=== PATIENT | female | born 1950 | race Two or more races ===

== ENCOUNTER → 2017-01-31 | Outpatient (CLI) | payer MEDICARE, MEDICAID ==
[~2017-01-31] MED LIST: AMLODIPINE BESY10 MG ORAL; ATORVASTATIN CA40 MG ORAL; COGENTIN1 MG ORAL; DEPAKOTE250 MG PO; DEPAKOTE500 MG PO; FERROUS SULFAT325 MG ORAL; FUROSEMIDE20 M1 ORAL; GABAPENTIN100 MG ORAL; KLONOPIN0.5 MG ORAL; LEVOTHYROXINE50 MCG ORAL; LEXAPRO20 MG ORAL; OMEPRAZOLE20 M2 ORAL; PRANDIN1 MG ORAL; RISPERDAL0.5 MG ORAL
== END | disposition home or self-care (01) ==
LOC: RAD 09:07
DX: E11.9 Type 2 diabetes mellitus without complications (principal)
CPT/HCPCS: 36415; 83036

== ENCOUNTER → 2017-02-14 | Outpatient (CLI) | payer MEDICARE, MEDICAID ==
[2017-02-14 09:48] LABS: BASOPHILS % (AUTO) 0.4 % (0.0-2.0); EOSINOPHILS % (AUTO) 2.6 % (0.0-3.0); LYMPHOCYTES % (AUTO) 27.3 % (20.0-45.0); MEAN CORPUSCULAR HEMOGLOBIN 30.8 PG (27.0-31.0); MEAN CORPUSCULAR HGB CONC 32.3 G/DL (32.0-36.0); MEAN CORPUSCULAR VOLUME 95 FL (80-99); MEAN PLATELET VOLUME 7.5 FL (6.5-10.1); MONOCYTES % (AUTO) 11.1 % (1.0-10.0); NEUTROPHILS % (AUTO) 58.6 % (45.0-75.0); PLATELET COUNT 171 K/UL (150-450); RED CELL DISTRIBUTION WIDTH 12.2 % (11.6-14.8); WHITE BLOOD COUNT 7.8 K/UL (4.8-10.8)
[2017-02-14 10:14] LABS: HEMOLYSIS 9; IRON 105 ug/dL (37-145); TOTAL IRON BINDING CAPACITY 249 ug/dL (250-400)
[2017-02-14 11:08] LABS: RETICULOCYTE COUNT 1.4 % (0.0-2.0)
[2017-02-14 14:18] LABS: FERRITIN 540 ng/mL (13-150)
== END | disposition home or self-care (01) ==
LOC: LAB 09:18
DX: K62.5 Hemorrhage of anus and rectum (principal)
CPT/HCPCS: 36415; 82728; 83540; 83550; 85025; 85044

== ENCOUNTER → 2017-03-14 | Outpatient (CLI) | payer MEDICARE, MEDICAID ==
[2017-03-14 09:30] LABS: BASOPHILS % (AUTO) 0.5 % (0.0-2.0); EOSINOPHILS % (AUTO) 2.4 % (0.0-3.0); MEAN CORPUSCULAR HGB CONC 31.2 G/DL (32.0-36.0); MEAN CORPUSCULAR VOLUME 99 FL (80-99); MEAN PLATELET VOLUME 8.6 FL (6.5-10.1); MONOCYTES % (AUTO) 11.9 % (1.0-10.0); NEUTROPHILS % (AUTO) 52.2 % (45.0-75.0); PLATELET COUNT 188 K/UL (150-450); RED BLOOD COUNT 3.73 M/UL (4.20-5.40); RED CELL DISTRIBUTION WIDTH 13.2 % (11.6-14.8); WHITE BLOOD COUNT 9.4 K/UL (4.8-10.8)
== END | disposition home or self-care (01) ==
LOC: LAB 09:06
DX: F31.9 Bipolar disorder, unspecified (principal); I10 Essential (primary) hypertension
CPT/HCPCS: 36415; 80164; 85025

== ENCOUNTER 2017-04-13 13:30 | Outpatient (RCR) | payer MEDICARE, MEDICAID ==
--- NOTE | 2017-03-29 13:55 | IOP Daily Group Progress Note ---
IOP Daily Group Progress Note Treatment Plan/Target Problem: Problem: depression Program: reflections Group Reflections - Tuesday: group 3 (11:30am-12:15pm) Therapy Focus/Approach of Group: symptoms Goal(s) of Group: coping tools for symptoms, symptom management Observations: anxious, depressed mood, participated, responded to prompts Staff Intervention: facilitated discussion, provided support Response/Progress Noted: A Cognitive Behavioral Therapy (CBT) exercise was presented helping the pt identify particularly challenging symptoms and obtain support and input regarding symptom management. ANGELITO CABRERA SERVICE TEAM LEADER March 29, 2017 13:55
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
--- NOTE | 2017-04-11 16:00 | IOP Daily Group Progress Note ---
IOP Daily Group Progress Note Treatment Plan/Target Problem: Date: April 11, 2017 Problem: depression Group Reflections - Tuesday: group 3 (11:30am-12:15pm) Therapy Focus/Approach of Group: symptoms Goal(s) of Group: coping tools for symptoms, counteracting negative thinking, identifying strengths, stress reduction, verbalize current thoughts and mood, weekend review Observations: active listening skills, attentive, engaged, made insightful comments, participated, positive mood, self disclosing Staff Intervention: assessed for safety/suicidality, assessed pt's current mood , facilitated discussion Staff Intervention: Therapist asked patients to consider current mood and feelings, and to discuss their weekend. Therapist offered patients a safe, comfortable space to express themselves and assessed for HI, SI, and safety. Response/Progress Noted: Patient mentioned feeling some anxiety because she had yet to hear about her ride home. She described how much better she is able to handle stress than in the past. Patient discussed things she enjoys, including art and dancing. Jonh Hernandez April 11, 2017 16:00
[~2017-04-13 13:30] MED LIST changes: +COLACE100 MG ORAL; +COMBIVENT RESPIM4 GM IH; +VITAMIN D400 INTLU ORAL
--- NOTE | 2017-04-14 16:53 | IOP Daily Group Progress Note ---
IOP Daily Group Progress Note Group Reflections - : group 2 (10:35am-11:20am) Therapy Focus/Approach of Group: skills Goal(s) of Group: coping tools for symptoms, explore relationships to family, identifying strengths, interpersonal relationships, positive thoughts to improve mood, verbalize current thoughts and mood Observations: attentive, engaged, open, participated, positive mood, self disclosing Staff Intervention: assessed for safety/suicidality, facilitated discussion, normalized feelings Staff Intervention: Therapist facilitated a discussion about noticing beauty in the world, through the example of the butterfly.Patients were asked to share their observations and experiences. Session closed with a song titled "Black Butterfly." Response/Progress Noted: Patient said "I used to be afraid of animals." She described getting beyond that feeling to the point she was able to feed a family of cats. She also spoke about the meaningful relationships in her life. Jonh Hernandez April 14, 2017 16:53
--- NOTE | 2017-04-20 14:58 | IOP Daily Group Progress Note ---
IOP Daily Group Progress Note Treatment Plan/Target Problem: Date: April 20, 2017 Problem: depression Program: reflections Group Reflections - Tuesday: group 2 (10:35am-11:20am) Therapy Focus/Approach of Group: skills Goal(s) of Group: anxiety reduction, identifying strengths, improving self esteem, interpersonal relationships Observations: active listening skills, attentive, engaged, open, participated, self disclosing Staff Intervention: assessed for safety/suicidality, assessed pt's current mood , prompted reminiscence, provided administrative support coordinator Intervention: Therapist facilitated a discussion about friendship and encouraged patients to share their friendship history and, if possible, how particular relationships affected them. Therapist also used music at the close of class, as a way to assist patients with relaxation. Response/Progress Noted: Patient shared that she has had a couple of girlfriends "since the 1980s", but they haven't gotten together in a while. Patient discussed acclimating to being without a working cellphone, but admitted that she does not have her friends' numbers easily accessible, which is "frustrating." Jonh Hernandez COMMERCIAL LOAN SPECIALIST April 20, 2017 14:58
--- NOTE | 2017-04-27 15:26 | IOP Daily Group Progress Note ---
IOP Daily Group Progress Note Treatment Plan/Target Problem: Date: April 27, 2017 Problem: depression Program: reflections Group - Tuesday: group 2 (10:35am-11:20am) Therapy Focus/Approach of Group: skills Goal(s) of Group: anxiety reduction, communication skills, coping with change, identifying strengths, verbalize current thoughts and mood Observations: attentive, engaged, participated, self disclosing, responded to prompts Staff Intervention: assessed for safety/suicidality, assessed pt's current mood , facilitated discussion, prompted reminiscence, provided intelligence support officer Intervention: Therapist facilitated a discussion among patients, encouraging them to share situations where expectations were met and weren't met and what motivated their reactions, as well as when they managed the expectations of others. Response/Progress Noted: Patient disclosed her motivation to lose weight and go to [place] with a friend. She described prior trip with another friend where expectations were not met because "my friend ran out of money and I had to lend her what I won at the slots." She said she learned to be more careful about who she travels with. Jonh Hernandez STUDENT SERVICES REP April 27, 2017 15:26
== END 2017-04-27 | disposition home or self-care (01) ==
LOC: PTY 13:30
DX: M54.5 Low back pain (principal); R26.9 Unspecified abnormalities of gait and mobility; R53.1 Weakness; T14.8 Other injury of unspecified body region; X58.XXXD Exposure to other specified factors, subsequent encounter
CPT/HCPCS: 97110; 97161; G0283; G8978; G8979

== ENCOUNTER 2017-05-04 13:30 | Outpatient (RCR) | payer MEDICARE, MEDICAID ==
--- NOTE | 2017-05-04 16:43 | IOP Daily Group Progress Note ---
IOP Daily Group Progress Note Treatment Plan/Target Problem: Date: May 04, 2017 Group Reflections - Tuesday: group 1 (9:40am-10:25am) Therapy Focus/Approach of Group: process Goal(s) of Group: anxiety reduction, coping tools for symptoms, identify mood, impact of current issues on mood, positive thoughts to improve mood, stress reduction Observations: engaged, open, participated, self disclosing, responded to prompts Staff Intervention: assessed for safety/suicidality, assessed pt's current mood , facilitated discussion, provided support, validated feelings Staff Intervention: Therapist facilitated session by asking patients to share their mood and any thoughts or problems they are experiencing, as well as what would improve their mood. Therapist provided a safe space for patients to express themselves and assessed for SI, HI, and safety. Response/Progress Noted: Patient disclosed feeling "disappointed, frustrated, and anxious." She described "waiting and waiting" for conservator to help her either fix or replace her cellphone, after waiting nearly a month. Patient reported "I was sure I was going to get a phone, but it didn't happen." Jonh Hernandez CONTRACTOR GENERAL BUILDING May 04, 2017 16:43
--- NOTE | 2017-05-05 08:59 | IOP Daily Group Progress Note ---
IOP Daily Group Progress Note Treatment Plan/Target Problem: Date: May 04, 2017 Problem: depression Program: reflections Group Reflections - Tuesday: group 2 (10:35am-11:20am) Therapy Focus/Approach of Group: skills Goal(s) of Group: anxiety reduction, coping with change, identify mood, positive thoughts to improve mood, support systems Observations: attentive, engaged, focused, participated, positive mood Staff Intervention: assessed for safety/suicidality, assessed pt's current mood , facilitated discussion, provided support, validated feelings Staff Intervention: Therapist facilitated a discussion about how patients deal with change, both positive and negative. Patients were asked to share what they do when change happens and group members were encouraged to support each other. Response/Progress Noted: Patient described many changes she has experienced over the past several years since the 2008 deaths of her mother and brother. "I had to adjust with difficulty. I lived by myself for a year. I know I'm resilient. I'm now secure at my cousin's." oJnh Hernandez HOTEL SECURITY OFFICER May 05, 2017 08:59
--- NOTE | 2017-05-05 15:25 | IOP Daily Group Progress Note ---
IOP Daily Group Progress Note Treatment Plan/Target Problem: Date: May 05, 2017 Group Reflections - : group 3 (11:30am-12:15pm) Therapy Focus/Approach of Group: symptoms Goal(s) of Group: coping tools for symptoms, identifying strengths, symptom management Observations: attentive, engaged, participated, responded to prompts Staff Intervention: assessed for safety/suicidality, assessed pt's current mood , facilitated discussion, provided support, validated feelings Staff Intervention: Therapist facilitated a discussion with patients about positive coping skills. After providing examples, patients were encouraged to share their experiences and the coping tools they employ when they are feeling strong emotions. Response/Progress Noted: Patient disclosed various coping tools she uses. "I listen to the radio. I call friends when I have a phone. I also exercise at a park with my friend." Patient shared a focus on uatsdin as well. "Going to advent helps me cope through the week." She shared with the group her favorite Bible verse. Jonh Hernandez May 05, 2017 15:25
--- NOTE | 2017-05-09 14:02 | IOP Daily Group Progress Note ---
IOP Daily Group Progress Note Treatment Plan/Target Problem: Date: May 09, 2017 Problem: impaired thoughts Program: reflections Group Reflections - Tuesday: group 2 (10:35am-11:20am) Therapy Focus/Approach of Group: skills Response/Progress Noted: THIS DRAFT IS A DUPLICATE. NOTE ALREADY WRITTEN AND SIGNED. BONG MONTESINOS May 09, 2017 14:02
--- NOTE | 2017-05-09 15:31 | IOP Daily Group Progress Note ---
IOP Daily Group Progress Note Treatment Plan/Target Problem: Date: May 09, 2017 Problem: depression Program: reflections Group Reflections - Tuesday: group 3 (11:30am-12:15pm) Therapy Focus/Approach of Group: symptoms Goal(s) of Group: anxiety reduction, identify mood, identifying strengths, reminiscing to improve mood Observations: attentive, engaged, participating actively, positive mood, smiled when appropriate Staff Intervention: assessed for safety/suicidality, assessed pt's current mood , facilitated discussion, prompted reminiscence, provided support, validated feelings Staff Intervention: Therapists shared the following quote by Ortiz Moctezuma, "Opportunities to find deeper marino within ourselves come when life seems most challenging," and asked clients to share when in their lives they overcame challenges and what they learned about themselves in the process. Response/Progress Noted: Patient expressed feelings of happiness and optimism now that she has a new phone, and is reconnecting with friends she was unable to reach. Patient shared challenge of cooking a meal by herself. "I usually don't cook," but "Bryson told me I could do it and I did." Patient described a quote she remembers from her mother, "make a necklace of positive experiences" and shared that she tries to locate the positive when she feels down. Jonh Hernandez OAK TANNER May 09, 2017 15:31
--- NOTE | 2017-05-10 16:04 | IOP Daily Group Progress Note ---
IOP Daily Group Progress Note Treatment Plan/Target Problem: Date: May 10, 2017 Problem: depression Program: reflections Group Reflections - Tuesday: group 3 (11:30am-12:15pm) Therapy Focus/Approach of Group: symptoms Goal(s) of Group: coping tools for symptoms, identify activities to improve mood, positive thoughts to improve mood Observations: attentive, engaged, open, participated, positive mood, responded to prompts, smiled when appropriate Staff Intervention: assessed pt's current mood, assisted identifying coping tools, encouraged patient participation, reflective listening Staff Intervention: Therapist facilitated a discussion with patients about using music as a resource toward healing, asking them to identify their favorite song and share what it means to them. Patients also shared their thoughts and feelings about their favorite foods. Response/Progress Noted: Patient discussed the song that means the most to her, "Black Butterfly," because it reminds her of "the struggle against slavery as well as current struggles" in society. As a diabetic, patient shared that she has to watch the foods she eats, but disclosed her love of "spumoni ice cream and homemade fudge. " Jonh Hernandez MASTIC SPRAYER May 10, 2017 16:04
--- NOTE | 2017-05-11 15:48 | IOP Daily Group Progress Note ---
IOP Daily Group Progress Note Treatment Plan/Target Problem: Date: May 09, 2017 Problem: impaired thoughts Program: reflections Group Reflections - Tuesday: group 2 (10:35am-11:20am) Therapy Focus/Approach of Group: skills Goal(s) of Group: anger management, anxiety reduction, coping tools for symptoms Observations: concrete thinking, constricted affect, depressed mood, participated, self disclosing, responded to prompts Staff Intervention: facilitated discussion, provided reassurance, validated feelings Response/Progress Noted: LISTEN TO YOUR EMOTIONS Pt participated in a Cognitive Behavioral Therapy group discussion regarding the value of ones emotions and how important they are to help us get in touch with our needs, values, and boundaries. Nine different emotions were written on index cards and put in a basket that was passed from one Pt to the next, each Pt selecting and reading one of the cards about a particular emotion. Pt was able to identify strongly with many, if not all of the emotions discussed. They were, anger, sadness, shame, anxiety, disappointment, bitterness, discomfort, resentment, and guilt. BONG MONTESINOS MARKETING LEAD May 11, 2017 15:48
--- NOTE | 2017-05-11 16:45 | IOP Treatment Plan Update ---
Monthy/Quarterly Plan Update Today's Date: May 11, 2017 Last Review Date: April 11, 2017 Next Review Date: Jun 13, 2017 Justification for OP Care: difficulty with ADL's/IADL's, extreme psychosocial stressors Problem List: impaired thoughts Progress Since Last Review: Pt has been consistently attending the program 4x/wk as planned and is pleased with the progress she is making and the support she receives from being in this program. Pt was pleased to say she recently got a new cell phone, after being without one for about three weeks. Her cousin and conservator, Delia, helped Pt shop for it. Pablo , Bryson, also helped Pt with transportation. Since Pt spent money on a new cell phone, she stated she will have to be more careful with her money on other things she needs this month. As a result, Pt was not able to save $25.00 this month for a possible vacation. Pt had to delay paying off and picking up a $15.00 layaway balance for a pair of earrings. She will have to wait until early May. Pt stated that she called her friend Guillermina for a quick phone conversation. Guillermina has recently received treatment for health problems, and Pt and her friend Josefa may visit Guillermina for a short time after spiritism on Tuesday. Pt expressed her gratitude at having a nice place to live with her family. Short Term Goals: 1. Pt feels good about her financial situation and has changed her mind. She decided she wants to give her family with whom she lives $60.00 p/mo for groceries, after all. Pt will self-report in 1:1 2. Pt has been and will continue exercising in the park on the weight machines with her friend Josefa. Pt will self-report in 1:1 3. Pt will continue with her goal of losing weight. She recently reached a plateau, but will continue eating a little less and exercising more. Pt will self-report in 1:1 Family Involvement/Education: Pt receives support from her first cousin Delia and Pablo , Bryson. Nurse: There are medical issues, but they do not preclude the patients participation in the program. Please see the nurse note in the EMR for specifics. BONG MONTESINOS May 11, 2017 16:45
--- NOTE | 2017-05-12 13:57 | IOP Daily Group Progress Note ---
IOP Daily Group Progress Note Treatment Plan/Target Problem: Date: May 12, 2017 Problem: depression Program: reflections Group Reflections - : group 2 (10:35am-11:20am) Therapy Focus/Approach of Group: skills Goal(s) of Group: anxiety reduction, identify triggers to symptoms, stress reduction, verbalize current thoughts and mood Observations: attentive, engaged, low energy, participated, self disclosing Staff Intervention: assessed pt's current mood, encouraged patient participation, facilitated discussion, provided support, validated feelings Staff Intervention: Therapist facilitated a Cognitive Behavioral Therapy discussion generated by the question "What are your trigger events for feeling angry?." Therapist encouraged patients to share what they do when angry and encouraged group members to support each other. Therapist shared a mindfulness technique and used music therapy to assist patients in relaxation. Response/Progress Noted: Patient described feeling angry "when I think people are trying to control me, treat me like I'm helpless." She shared she tends to "hold it in," but experiences frustration and thoughts o living on her own. Jonh Hernandez COPPER ROLLER HANDLER PRINTING May 12, 2017 13:57
--- NOTE | 2017-05-16 14:00 | IOP Daily Group Progress Note ---
IOP Daily Group Progress Note Treatment Plan/Target Problem: Date: May 16, 2017 Problem: impaired thoughts Program: reflections Group Reflections - Tuesday: group 2 (10:35am-11:20am) Therapy Focus/Approach of Group: skills Goal(s) of Group: decreasing isolation, identify activities to improve mood, improving self esteem Observations: concrete thinking, constricted affect, hyperverbal, participated , self disclosing, responded to prompts Staff Intervention: facilitated discussion, reflective listening, validated progress Response/Progress Noted: VOLUNTEERING Pt participated in a Cognitive Behavioral therapy group discussion about volunteering. If Pt could volunteer anywhere, with no limitations, what would Pt be doing as a volunteer, where would it be, and who would Pt be serving? Pt stated, I would have a non-profit program to help women and children and we would feed them lunch. BONG MONTESINOS May 16, 2017 14:00
== END 2017-05-27 | disposition home or self-care (01) ==
LOC: PTY 13:30
DX: M54.5 Low back pain (principal); R26.9 Unspecified abnormalities of gait and mobility; R53.1 Weakness

== ENCOUNTER → 2017-05-23 | Outpatient (CLI) | payer MEDICAID, MEDICARE ==
[2017-05-23 09:47] LABS: BASOPHILS % (AUTO) 1.2 % (0.0-2.0); EOSINOPHILS % (AUTO) 2.2 % (0.0-3.0); LYMPHOCYTES % (AUTO) 30.3 % (20.0-45.0); MEAN CORPUSCULAR HEMOGLOBIN 31.6 PG (27.0-31.0); MEAN CORPUSCULAR VOLUME 99 FL (80-99); MONOCYTES % (AUTO) 10.4 % (1.0-10.0); NEUTROPHILS % (AUTO) 55.9 % (45.0-75.0); PLATELET COUNT 205 K/UL (150-450); RED BLOOD COUNT 4.15 M/UL (4.20-5.40); RED CELL DISTRIBUTION WIDTH 11.6 % (11.6-14.8); WHITE BLOOD COUNT 9.1 K/UL (4.8-10.8)
[2017-05-23 10:15] LABS: HEMOGLOBIN A1C 6.5 % (< 6.0)
[2017-05-23 10:16] LABS: CREATININE 1.9 mg/dL (0.5-0.9); GLOMERULAR FILTRATION RATE 26.6 mL/min (>60); MAGNESIUM 1.9 mg/dL (1.7-2.5); TOTAL PROTEIN 7.9 g/dL (6.6-8.7)
[2017-05-23 10:22] LABS: THYROID STIMULATING HORMONE 2.52 uIU/mL (0.300-4.500)
== END | disposition home or self-care (01) ==
LOC: LAB 09:15
DX: E11.9 Type 2 diabetes mellitus without complications (principal)
CPT/HCPCS: 36415; 80053; 80164; 83036; 83735; 84443; 85025

== ENCOUNTER 2017-06-01 13:45 | Outpatient (RCR) | payer MEDICARE, MEDICAID ==
--- NOTE | 2017-05-29 23:16 | Reflections ---
03/03/2017 REVIEW OF SYSTEMS: The patient is pleasant, calm, and cooperative with interview. Follows directions. Denies any new complaints. MENTAL STATUS EVALUATION: Alert to self and situation. Mood is anxious. Affect is appropriate. Thought process is linear. Cognition is intact. Impulse control, insight, and judgment is partially impaired. DIAGNOSIS: Schizoaffective disorder. PLAN: Continue with current management. Continue to monitor symptoms and behavior. Medications reviewed. Chart reviewed. Case discussed with staff. No new symptoms, sedation, or side effects. Familia Galan M.D. DR: Terrance JOB#: [id number] CC: OLGA
== END 2017-06-27 | disposition home or self-care (01) ==
LOC: PTY 13:45
DX: M54.5 Low back pain (principal); R26.9 Unspecified abnormalities of gait and mobility; R53.1 Weakness
CPT/HCPCS: 97110; G8979; G8980

== ENCOUNTER 2017-07-21 09:13 | Outpatient (CLI) | payer MEDICARE, MEDICAID ==
[2017-07-21 09:59] LABS: BASOPHILS % (AUTO) 0.9 % (0.0-2.0); EOSINOPHILS % (AUTO) 2.6 % (0.0-3.0); LYMPHOCYTES % (AUTO) 24.4 % (20.0-45.0); MEAN CORPUSCULAR HEMOGLOBIN 32.2 PG (27.0-31.0); MEAN CORPUSCULAR HGB CONC 32.5 G/DL (32.0-36.0); MEAN CORPUSCULAR VOLUME 99 FL (80-99); MEAN PLATELET VOLUME 9.6 FL (6.5-10.1); MONOCYTES % (AUTO) 11.1 % (1.0-10.0); NEUTROPHILS % (AUTO) 60.9 % (45.0-75.0); PLATELET COUNT 199 K/UL (150-450); RED BLOOD COUNT 3.84 M/UL (4.20-5.40); RED CELL DISTRIBUTION WIDTH 11.8 % (11.6-14.8); WHITE BLOOD COUNT 9.5 K/UL (4.8-10.8)
[2017-07-21 10:09] LABS: BILIRUBIN,DIRECT 0.1 mg/dL (0.1-0.3); TOTAL PROTEIN 7.7 g/dL (6.6-8.7)
== END 2017-07-21 11:13 | disposition home or self-care (01) ==
LOC: LAB 09:13
DX: E11.9 Type 2 diabetes mellitus without complications (principal)
CPT/HCPCS: 36415; 80076; 80164; 82140; 85025

== ENCOUNTER 2018-01-12 19:11 | Inpatient (IN) | payer MEDICARE, MEDICAID ==
[~2018-01-12] VITALS: Ht 172.7 cm; Wt 95.3 kg
[2018-01-12 19:40] VITALS: BP 121/76
[2018-01-12] MEDS ORDERED: Acetaminophen 500mg (ES) tab ORAL ONE (20:00)
--- NOTE | 2018-01-12 20:26 | Emergency Room Report ---
History of Present Illness General Chief Complaint: General Complaint Source: Patient Present Illness HPI 67-year-old female, presenting with 3-4 days of cough, fever, chills. Also states that she fell yesterday and hit her head. There was no LOC. Sustained abrasions to left forehead. Also complaining of watery nonbloody diarrhea, about 3-4 episodes. No abdominal pain.dec appetite Allergies: Coded Allergies: No Known Allergies (Unverified , 07/08/13) Patient History Past Medical History: see triage record Past Surgical History: none Pertinent Family History: none Last Menstrual Period: NA Now: No Reviewed Nursing Documentation: PMH: Agreed, PSxH: Agreed Nursing Documentation-PMH Hx Hypertension: Yes Hx Diabetes: Yes Review of Systems All Other Systems: negative except mentioned in HPI Physical Exam Vital Signs Date Time Temp Pulse Resp B/P (MAP) Pulse Ox O2 Delivery O2 Flow Rate FiO2 01/12/18 19:27 100.3 101 18 121/76 98 Room Air 100.2 Sp02 EP Interpretation: reviewed, normal General Appearance: alert, GCS 15, non-toxic, mild distress Head: normocephalic - abrasion L forehead, very silght non boggy hematoma Eyes: bilateral eye normal inspection, bilateral eye PERRL, bilateral eye EOMI ENT: normal pharynx, normal voice, dry mucus membranes Neck: normal inspection, full range of motion, supple Respiratory: normal inspection, lungs clear, normal breath sounds, no respiratory distress, no retraction, no wheezing, speaking full sentences, chest symmetrical Cardiovascular #1: normal inspection, regular rate, rhythm, normal capillary refill Cardiovascular #2: 2+ radial (R), 2+ radial (L) Gastrointestinal: normal inspection, non tender, soft, non-distended, no guarding Musculoskeletal: normal inspection, back normal, normal range of motion, non- tender Neurologic: normal inspection, alert, oriented x3, responsive, accounting systems manager III-XII nml as tested, motor strength/tone normal, sensory intact, normal gait, speech normal Psychiatric: normal inspection, judgement/insight normal, memory normal Skin: normal inspection, normal color, no rash, warm/dry, well hydrated, normal turgor Medical Decision Making Diagnostic Impression: Primary Impression: Dehydration Additional Impressions: Fever Elevated troponin ER Course 67-year-old female, presenting with cough and fever, diarrhea DDX: Viral URI vs. pneumonia Dehydration, gastroenteritis, at this time her abdomen is very soft nontender all quadrants Plan: Labs, chest x-ray, IV fluids ER course: pt given fluids and tylenol very mild elevation trop - asa given Disposition: Patient is to be admitted to [facility] D/w hospitalist Dr Azar Lopez EKG Diagnostic Results EP Interpretation: Yes Rate: normal Rhythm: NSR ST Segments: slight TWI [id number] ASA given to patient: No Rhythm Strip EP Interpretation: Yes Rate: 70 Rhythm: NSR, no PVCs, no ectopy Chest X-ray CXR: Ordered: Yes 1 view Indication: SOB EP interpretation: Yes Interpretation: Right-sided hemidiaphragm elevation Impression: No acute findings Electronically signed by Kamla Vieira MD Laboratory Tests Test 01/12/18 21:05 01/12/18 23:00 01/13/18 10:47 01/13/18 14:23 White Blood Count 10.0 K/UL (4.8-10.8) Red Blood Count 4.17 M/UL (4.20-5.40) L Hemoglobin 12.8 G/DL (12.0-16.0) Hematocrit 39.8 % (37.0-47.0) Mean Corpuscular Volume 95 FL (80-99) Mean Corpuscular Hemoglobin 30.8 PG (27.0-31.0) Mean Corpuscular Hemoglobin Concent 32.3 G/DL (32.0-36.0) Red Cell Distribution Width 12.2 % (11.6-14.8) Platelet Count 176 K/UL (150-450) Mean Platelet Volume 10.1 FL (6.5-10.1) Neutrophils (%) (Auto) 75.3 % (45.0-75.0) H Lymphocytes (%) (Auto) 10.5 % (20.0-45.0) L Monocytes (%) (Auto) 12.3 % (1.0-10.0) H Eosinophils (%) (Auto) 0.0 % (0.0-3.0) Basophils (%) (Auto) 1.9 % (0.0-2.0) Sodium Level 139 MMOL/L (136-145) Potassium Level 3.9 MMOL/L (3.5-5.1) Chloride Level 103 MMOL/L (98-107) Carbon Dioxide Level 25 MMOL/L (21-32) Anion Gap 11 mmol/L (5-15) Blood Urea Nitrogen 29 mg/dL (7-18) H Creatinine 2.6 MG/DL (0.55-1.30) H Estimate Glomerular Filtration Rate 22.4 mL/min (>60) Glucose Level 140 MG/DL (74-106) H Lactic Acid Level 1.30 mmol/L (0.66-2.22) Calcium Level 9.5 MG/DL (8.5-10.1) Total Bilirubin 0.2 MG/DL (0.2-1.0) Aspartate Amino Transferase (AST) 46 U/L (15-37) H Alanine Aminotransferase (ALT) 41 U/L (12-78) Alkaline Phosphatase 54 U/L (46-116) Troponin I 0.134 ng/mL (0.000-0.056) Pro-B-Type Natriuretic Peptide 604 pg/mL (0-125) H Total Protein 8.6 G/DL (6.4-8.2) H Albumin 3.4 G/DL (3.4-5.0) Globulin 5.2 g/dL Albumin/Globulin Ratio 0.7 (1.0-2.7) L Valproic Acid Level 67 MCG/ML (50-100) Urine Color Pale yellow Urine Appearance Clear Urine pH 5 (4.5-8.0) Urine Specific [place] 1.010 (1.005-1.035) Urine Protein 2+ (NEGATIVE) H Urine Glucose (UA) Negative (NEGATIVE) Urine Ketones 1+ (NEGATIVE) H Urine Occult Blood 2+ (NEGATIVE) H Urine Nitrite Negative (NEGATIVE) Urine Bilirubin Negative (NEGATIVE) Urine Urobilinogen Normal MG/DL (0.0-1.0) Urine Leukocyte Esterase 1+ (NEGATIVE) H Urine RBC 2-4 /HPF (0 - 2) H Urine WBC 2-4 /HPF (0 - 2) Urine Squamous Epithelial Cells Moderate /LPF (NONE/OCC) H Urine Bacteria Few /HPF (NONE) Vitamin D 25-Hydroxy Pending 25-Hydroxy Vitamin D2 Pending 25-Hydroxy Vitamin D3 Pending Stool Occult Blood Pending Test 01/13/18 15:20 01/14/18 07:34 Stool Occult Blood Pending White Blood Count 8.4 K/UL (4.8-10.8) Red Blood Count 3.56 M/UL (4.20-5.40) L Hemoglobin 11.1 G/DL (12.0-16.0) L Hematocrit 33.9 % (37.0-47.0) L Mean Corpuscular Volume 95 FL (80-99) Mean Corpuscular Hemoglobin 31.3 PG (27.0-31.0) H Mean Corpuscular Hemoglobin Concent 32.8 G/DL (32.0-36.0) Red Cell Distribution Width 12.0 % (11.6-14.8) Platelet Count 125 K/UL (150-450) L Mean Platelet Volume 8.9 FL (6.5-10.1) Neutrophils (%) (Auto) 44.0 % (45.0-75.0) L Lymphocytes (%) (Auto) 39.1 % (20.0-45.0) Monocytes (%) (Auto) 14.8 % (1.0-10.0) H Eosinophils (%) (Auto) 0.8 % (0.0-3.0) Basophils (%) (Auto) 1.2 % (0.0-2.0) Sodium Level 146 MMOL/L (136-145) H Potassium Level 3.6 MMOL/L (3.5-5.1) Chloride Level 112 MMOL/L (98-107) H Carbon Dioxide Level 26 MMOL/L (21-32) Anion Gap 9 mmol/L (5-15) Blood Urea Nitrogen 22 mg/dL (7-18) H Creatinine 2.1 MG/DL (0.55-1.30) H Estimate Glomerular Filtration Rate 28.7 mL/min (>60) Glucose Level 121 MG/DL (74-106) H Calcium Level 8.8 MG/DL (8.5-10.1) Total Bilirubin 0.2 MG/DL (0.2-1.0) Aspartate Amino Transferase (AST) 36 U/L (15-37) Alanine Aminotransferase (ALT) 28 U/L (12-78) Alkaline Phosphatase 40 U/L (46-116) L Total Creatine Kinase 284 U/L (26-308) Troponin I 0.137 ng/mL (0.000-0.056) Total Protein 6.8 G/DL (6.4-8.2) Albumin 2.6 G/DL (3.4-5.0) L Globulin 4.2 g/dL Albumin/Globulin Ratio 0.6 (1.0-2.7) L Thyroid Stimulating Hormone (TSH) 4.414 uiU/mL (0.358-3.740) Hepatitis A IgM Antibody Pending Hepatitis B Surface Antigen Pending Hepatitis B Core IgM Antibody Pending Hepatitis C Antibody Pending Microbiology Date/Time Source Procedure Growth Status 01/13/18 14:23 Nasal Nares Influenza Types A,B Antigen (LINDA) - Final Complete 01/13/18 09:30 Nasal Nares Influenza Types A,B Antigen (LINDA) - Final Complete 01/13/18 15:20 Stool Clostridium difficile Toxin Assay - Final Complete Last Vital Signs Date Time Temp Pulse Resp B/P (MAP) Pulse Ox O2 Delivery O2 Flow Rate FiO2 01/12/18 19:27 100.3 101 18 121/76 98 Room Air 100.2 Disposition: ADMITTED INPATIENT Condition: Serious RetinKamla reyes M.D. Jan 12, 2018 20:26
[2018-01-12 21:45] LABS: BASOPHILS % (AUTO) 1.9 % (0.0-2.0); HEMATOCRIT 39.8 % (37.0-47.0); HEMOGLOBIN 12.8 G/DL (12.0-16.0); LYMPHOCYTES % (AUTO) 10.5 % (20.0-45.0); MEAN CORPUSCULAR VOLUME 95 FL (80-99); MONOCYTES % (AUTO) 12.3 % (1.0-10.0); NEUTROPHILS % (AUTO) 75.3 % (45.0-75.0); PLATELET COUNT 176 K/UL (150-450); RED BLOOD COUNT 4.17 M/UL (4.20-5.40); RED CELL DISTRIBUTION WIDTH 12.2 % (11.6-14.8)
[2018-01-12 21:50] VITALS: BP 94/53
[2018-01-12 21:56] LABS: ANION GAP 11 mmol/L (5-15); BLOOD UREA NITROGEN 29 mg/dL (7-18); CALCIUM 9.5 MG/DL (8.5-10.1); CARBON DIOXIDE 25 MMOL/L (21-32); CHLORIDE 103 MMOL/L (98-107); CREATININE 2.6 MG/DL (0.55-1.30); POTASSIUM 3.9 MMOL/L (3.5-5.1); SODIUM 139 MMOL/L (136-145)
[2018-01-12 22:06] LABS: ALANINE AMINOTRANSFERASE 41 U/L (12-78); ALBUMIN 3.4 G/DL (3.4-5.0); ALBUMIN/GLOBULIN RATIO 0.7 (1.0-2.7); ALKALINE PHOSPHATASE 54 U/L (46-116); ASPARTATE AMINO TRANSFERASE 46 U/L (15-37); BILIRUBIN,TOTAL 0.2 MG/DL (0.2-1.0)
[2018-01-12 23:40] LABS: APPEARANCE,URINE CLEAR; BILIRUBIN, URINE NEGATIVE (NEGATIVE); COLOR,URINE PALE YELLOW; GLUCOSE, URINE (UA) NEGATIVE (NEGATIVE); KETONES,URINE 1+ (NEGATIVE); LEUKOCYTE ESTERASE ,URINE 1+ (NEGATIVE); NITRITE,URINE NEGATIVE (NEGATIVE); PH,URINE 5 (4.5-8.0); PROTEIN,URINE 2+ (NEGATIVE); UROBILINOGEN,URINE NORMAL MG/DL (0.0-1.0)
[2018-01-13] VITALS (8 sets, daily range): BP systolic 108–150; BP diastolic 48–99
[2018-01-13] MEDS ORDERED: IBUPROFEN800 M1 PO (05:47)
[2018-01-13] MEDS ORDERED: Repaglinide 1mg tab ORAL SCH (09:30)
[2018-01-13] MEDS: Benztropine 1mg tab ORAL SCH ×3 (10:03→17:59)
--- NOTE | 2018-01-13 10:58 | Diagnostic Imaging Report ---
Indication: Chest pain Technique: One view of the chest Comparison: 10/17/2013 Findings: Lungs and pleural spaces are clear. Heart size is normal. Findings are unchanged Impression: No acute process
[2018-01-13] MEDS ORDERED: Albuterol/Ipratropium 3ml neb HHN PRN (14:00)
--- NOTE | 2018-01-13 14:21 | Cardiology Report ---
APPROVED REPORT EKG Measurement Heart [id number] Normal sinus rhythm Low voltage QRS Nonspecific ST and T wave abnormality Abnormal ECG
--- NOTE | 2018-01-13 16:08 | Geriatric Progress Note ---
Subjective Interval Events 67 y/o woman admitted with congestion, URI sxs, diarrhea, recent fall with head trauma, and fever. Patient reportedly in usual state of health until several days ago when she developed cough, congestion, URI sxs in setting of other family members also with URI sxs. Patients with some "dizziness", general malaise. [place] feverish, but did not check temperature. Approximately two days ago, attempt to get up from bed to get to bathroom, reportedly got legs tangled up in sheets, and fell, scraping her L knee and hitting her left forehead. She does not recall the event clearly, and is unable to say if she lost consciousness. Since then she has felt more "dizziness", and has been weak. Her cousin who is her conservator observed more confusion than usual, and was concerned about an exacerbation of her psychiatric disease. Diarrhea was noted yesterday, although the patient does not recall the episode. The patient was brought to the [facility] ED for evaluation. In ED, patient noted to have fever to 100.3, borderline tachycardia, URI sxs with congestion. Labwork revealed Normal wbc, Cr 2.6 [baseline 1.6 - 1.9], elevated troponin, elevated ProBNP, minimally abnormal u/a, clear CXR. Patient was admitted for further evaluation of her "dizziness", fever, respiratory sxs, azotemia, and diarrhea. PMH: Bipolar disease/schizoaffective disorder/hx dissociative disorder with psychosis. Hx of up to 47 psychiatric hospitalizations, last 2014. HTN. DM II. CKD, stage III-IV. Hx anemia, ? Fe deficiency. Hypothyroidism. Gout. DJD. Hx of L medial thigh wound associated with penetrating wound from fencing material incurred during psychotic episode. Menopause, late 50's, s/p D&C x 2. Under conservatorship by cousin. Hx of tobacco usage in psych hosp, last 3-4 yrs ago. Meds: Patient seems to have been non-complaint, made changes on her own or perhaps had changes made by other clinicians. She reports - amlodipine 10mg daily. atorvastatin 40mg qhs. benztropine 1mg tid. Depakote 250mg bid. Depakote 1000mg qhs. docusate 100mg bid. repaglinide 1mg daily, prn bs>150. Risperdal 2.5mg qhs. PE: No dysconjugate gaze or nystagmus elicited, but patient c/o "headache" with EOM. L frontal erythema, mild tenderness associated with fall. No overt motor focality appreciated. Subjective c/o of mild "dizziness" on sitting up. Standing not tested. Speech normal. Affect compatible with baseline, cheerful, mildly perplexed at times. No overt psychosis. Chest with upper airway congestion, slight end expiratory wheezing, air movement normal. CV RR Abd benign Extermities without tenderness or edema. Suspect [place], likely viral with not evidence of secondary bacterial diathesis. Diarrhea due to ? Recent fall, consider postconcussion with residual mild headache, confusion. Suspect element of medication non-compliance associated with psychiatric substrate, questionable judgment. MASHA superimposed on CKD, likely due to volume depletion. Abnormal Troponin I, proBNP, likely associated with decreased GFR. IV hydration. Monitor labs. CT head. Neurology Consult. Gastroenterology Consult. Dictated #[id number] Geriatric Geriatric Last 24 Hour Vital Signs Date Time Temp Pulse Resp B/P (MAP) Pulse Ox O2 Delivery O2 Flow Rate FiO2 01/13/18 12:00 97.2 62 21 150/99 97 Room Air 01/13/18 09:00 60 110/60 01/13/18 08:00 97.2 60 20 110/60 95 Room Air 01/13/18 04:00 61 01/13/18 04:00 97.5 63 20 130/60 96 Room Air 01/13/18 03:20 98.8 58 16 108/71 97 Room Air 98.8 01/13/18 02:55 58 16 108/71 97 Room Air 01/13/18 02:00 61 13 112/48 98 Room Air 01/13/18 00:00 70 16 125/61 97 Room Air 01/12/18 23:11 98.8 01/12/18 22:12 100.3 01/12/18 21:50 90 23 94/53 95 Room Air 01/12/18 19:40 100.2 18 121/76 98 Room Air 100.2 01/12/18 19:27 100.3 101 18 121/76 98 Room Air 100.2 Intake and Output 01/12/18 01/13/18 19:00 07:00 Intake Total 0 ml Balance 0 ml Intake Oral 0 ml Laboratory Tests Test 01/12/18 21:05 01/12/18 23:00 01/13/18 10:47 01/13/18 14:23 White Blood Count 10.0 K/UL (4.8-10.8) Red Blood Count 4.17 M/UL (4.20-5.40) L Hemoglobin 12.8 G/DL (12.0-16.0) Hematocrit 39.8 % (37.0-47.0) Mean Corpuscular Volume 95 FL (80-99) Mean Corpuscular Hemoglobin 30.8 PG (27.0-31.0) Mean Corpuscular Hemoglobin Concent 32.3 G/DL (32.0-36.0) Red Cell Distribution Width 12.2 % (11.6-14.8) Platelet Count 176 K/UL (150-450) Mean Platelet Volume 10.1 FL (6.5-10.1) Neutrophils (%) (Auto) 75.3 % (45.0-75.0) H Lymphocytes (%) (Auto) 10.5 % (20.0-45.0) L Monocytes (%) (Auto) 12.3 % (1.0-10.0) H Eosinophils (%) (Auto) 0.0 % (0.0-3.0) Basophils (%) (Auto) 1.9 % (0.0-2.0) Sodium Level 139 MMOL/L (136-145) Potassium Level 3.9 MMOL/L (3.5-5.1) Chloride Level 103 MMOL/L (98-107) Carbon Dioxide Level 25 MMOL/L (21-32) Anion Gap 11 mmol/L (5-15) Blood Urea Nitrogen 29 mg/dL (7-18) H Creatinine 2.6 MG/DL (0.55-1.30) H Estimat Glomerular Filtration Rate 22.4 mL/min (>60) Glucose Level 140 MG/DL (74-106) H Lactic Acid Level 1.30 mmol/L (0.66-2.22) Calcium Level 9.5 MG/DL (8.5-10.1) Total Bilirubin 0.2 MG/DL (0.2-1.0) Aspartate Amino Transf (AST/SGOT) 46 U/L (15-37) H Alanine Aminotransferase (ALT/SGPT) 41 U/L (12-78) Alkaline Phosphatase 54 U/L (46-116) Troponin I 0.134 ng/mL (0.000-0.056) Pro-B-Type Natriuretic Peptide 604 pg/mL (0-125) H Total Protein 8.6 G/DL (6.4-8.2) H Albumin 3.4 G/DL (3.4-5.0) Globulin 5.2 g/dL Albumin/Globulin Ratio 0.7 (1.0-2.7) L Valproic Acid (Depakene) Level 67 MCG/ML (50-100) Urine Color Pale yellow Urine Appearance Clear Urine pH 5 (4.5-8.0) Urine Specific [place] 1.010 (1.005-1.035) Urine Protein 2+ (NEGATIVE) H Urine Glucose (UA) Negative (NEGATIVE) Urine Ketones 1+ (NEGATIVE) H Urine Occult Blood 2+ (NEGATIVE) H Urine Nitrite Negative (NEGATIVE) Urine Bilirubin Negative (NEGATIVE) Urine Urobilinogen Normal MG/DL (0.0-1.0) Urine Leukocyte Esterase 1+ (NEGATIVE) H Urine RBC 2-4 /HPF (0 - 2) H Urine WBC 2-4 /HPF (0 - 2) Urine Squamous Epithelial Cells Moderate /LPF (NONE/OCC) H Urine Bacteria Few /HPF (NONE) Vitamin D 25-Hydroxy Pending 25-Hydroxy Vitamin D2 Pending 25-Hydroxy Vitamin D3 Pending Stool Occult Blood Pending Current Medications Medications (Trade) Dose Ordered Sig/Ruchi Route PRN Reason Start Time Stop Time Status Last Admin Dose Admin Acetaminophen (Tylenol) 650 mg Q4H PRN ORAL Mild Pain/Temp > 100.5 01/13/18 08:45 02/12/18 08:44 Albuterol/ Ipratropium (Albuterol/ Ipratropium) 3 ml Q6H PRN HHN shortness of breath 01/13/18 14:00 01/18/18 13:59 Amlodipine Besylate (Norvasc) 10 mg DAILY ORAL 01/13/18 09:00 02/12/18 08:59 Atorvastatin Calcium (Lipitor) 40 mg BEDTIME ORAL 01/13/18 21:00 02/12/18 20:59 Benztropine Mesylate (Cogentin) 1 mg THREE TIMES A DAY ORAL 2/16/18 09:00 02/12/18 08:59 01/13/18 13:26 Divalproex Sodium (Depakote) 250 mg Q12HR ORAL 01/13/18 09:00 02/12/18 08:59 01/13/18 10:03 Repaglinide (Prandin) 1 mg ACBREAKFAST PRN ORAL for Blood Sugar >150 01/14/18 06:30 02/12/18 09:29 Risperidone (RisperDAL) 2.5 mg QHS ORAL 01/14/18 21:00 02/13/18 20:59 Sodium Chloride 1,000 ml @ 75 mls/hr [id number] IV 01/13/18 06:00 02/12/18 05:59 01/13/18 06:48 Height (Feet): 5 Height (Inches): 8.00 Weight (Pounds): 210 KRISTINA TREJO Jan 13, 2018 16:08
--- NOTE | 2018-01-13 16:57 | General Progress Note ---
Assessment/Plan Assessment/Plan Assessment - Acute,mild diarrhea - mildly abnormal LFT - respiratory infection - Azotemia Recommendations - Check stool Cx,C Diff, OB - No need for abx for GI issues - PO as tolerated - Outpatient colonoscopy Thank you Madison Negron MD Subjective Allergies: Coded Allergies: No Known Allergies (Unverified , 07/08/13) Objective Last 24 Hour Vital Signs Date Time Temp Pulse Resp B/P (MAP) Pulse Ox O2 Delivery O2 Flow Rate FiO2 01/13/18 12:00 97.2 62 21 150/99 97 Room Air 01/13/18 09:00 60 110/60 01/13/18 08:00 97.2 60 20 110/60 95 Room Air 01/13/18 04:00 61 01/13/18 04:00 97.5 63 20 130/60 96 Room Air 01/13/18 03:20 98.8 58 16 108/71 97 Room Air 98.8 01/13/18 02:55 58 16 108/71 97 Room Air 01/13/18 02:00 61 13 112/48 98 Room Air 01/13/18 00:00 70 16 125/61 97 Room Air 01/12/18 23:11 98.8 01/12/18 22:12 100.3 01/12/18 21:50 90 23 94/53 95 Room Air 01/12/18 19:40 100.2 18 121/76 98 Room Air 100.2 01/12/18 19:27 100.3 101 18 121/76 98 Room Air 100.2 Intake and Output 01/12/18 01/13/18 19:00 07:00 Intake Total 0 ml Balance 0 ml Intake Oral 0 ml Laboratory Tests 01/12/18 21:05: White Blood Count 10.0, Red Blood Count 4.17L, Hemoglobin 12.8, Hematocrit 39.8 , Mean Corpuscular Volume 95, Mean Corpuscular Hemoglobin 30.8, Mean Corpuscular Hemoglobin Concent 32.3, Red Cell Distribution Width 12.2, Platelet Count 176, Mean Platelet Volume 10.1, Neutrophils (%) (Auto) 75.3H, Lymphocytes (%) (Auto) 10.5L, Monocytes (%) (Auto) 12.3H, Eosinophils (%) (Auto) 0.0, Basophils (%) (Auto) 1.9, Sodium Level 139, Potassium Level 3.9, Chloride Level 103, Carbon Dioxide Level 25, Anion Gap 11, Blood Urea Nitrogen 29H, Creatinine 2.6H, Estimat Glomerular Filtration Rate 22.4, Glucose Level 140H, Lactic Acid Level 1.30, Calcium Level 9.5, Total Bilirubin 0.2, Aspartate Amino Transf (AST/ SGOT) 46H, Alanine Aminotransferase (ALT/SGPT) 41, Alkaline Phosphatase 54, Troponin I 0.134H, Pro-B-Type Natriuretic Peptide 604H, Total Protein 8.6H, Albumin 3.4, Globulin 5.2, Albumin/Globulin Ratio 0.7L, Valproic Acid (Depakene ) Level 67 01/12/18 23:00: Urine Color Pale yellow, Urine Appearance Clear, Urine pH 5, Urine Specific [place] 1.010, Urine Protein 2+H, Urine Glucose (UA) Negative, Urine Ketones 1+H , Urine Occult Blood 2+H, Urine Nitrite Negative, Urine Bilirubin Negative, Urine Urobilinogen Normal, Urine Leukocyte Esterase 1+H, Urine RBC 2-4H, Urine WBC 2-4, Urine Squamous Epithelial Cells ModerateH, Urine Bacteria Few 01/13/18 10:47: Vitamin D 25-Hydroxy [Pending], 25-Hydroxy Vitamin D2 [Pending], 25-Hydroxy Vitamin D3 [Pending] 01/13/18 14:23: Stool Occult Blood [Pending] Height (Feet): 5 Height (Inches): 8.00 Weight (Pounds): 210 MORGANMADISON FISHER Jan 13, 2018 16:57
[2018-01-13] MEDS: Albuterol/Ipratropium 3ml neb HHN SCH ×2 (17:00→19:17)
[2018-01-13] MEDS: Atorvastatin 20mg tab ORAL SCH (21:18)
--- NOTE | 2018-01-13 22:15 | Consultation ---
DATE OF CONSULTATION: 01/13/2018 GASTROLOGY CONSULTATION CHIEF COMPLAINT: I was asked to see this patient by Dr. Azar Lopez for evaluation of diarrhea. HISTORY OF PRESENT ILLNESS: The patient is a 67-year-old white woman who comes in to the hospital with multiple issues including congestion, diarrhea, and a recent fall with head trauma and fever. The patient was in usual state of health and she developed cough and congestion. She fell and came to emergency room for evaluation. She has had no significant trauma except for some minor superficial injuries. She does, however, complain of some diarrhea for the past day or two. She goes to the bathroom about one to four times a day with no blood in her bowel movement. She does have some release of cramps after she goes to the bathroom. However, there is no nausea or vomiting. She does not have any history of chronic diarrhea. She does not think she has had a colonoscopy for at least 10 years. She has no family history of colon cancer. PAST MEDICAL HISTORY: 1. History of chronic renal failure. 2. History of psychiatric disorder. 3. History of diabetes, hypertension, and obesity. MEDICATIONS: See chart list for details. FAMILY HISTORY: Positive for breast cancer in her mother and lung cancer in her father. SOCIAL HISTORY: The patient is single. She has no children. REVIEW OF SYSTEMS: Otherwise, negative. PHYSICAL EXAMINATION: GENERAL: An obese, but pleasant white woman, seen in her room. HEENT: Normocephalic and atraumatic. Sclerae anicteric. Dentition was fair. NECK: Supple. CHEST: Reveals scattered rhonchi and occasional wheezes. CARDIOVASCULAR: Revealed a regular rate. ABDOMEN: Soft and obese with good bowel sounds. There is no evidence of organomegaly. EXTREMITIES: Revealed no edema. NEUROLOGIC: Grossly nonfocal. LABORATORY DATA: Noted. ASSESSMENT: This patient presents with somewhat acute diarrhea for the past two days, which is nonbloody and does not appear to be clinically severe. She may have a viral related diarrhea. This could be the same virus that is affecting her respiratory system. She can be screened by other pathology such as Clostridium difficile or bacterial diarrhea, but no particular treatment with antibiotics is necessary at this time. I will treat the patient as tolerated for her symptoms. Her stool should also be checked for occult blood and more for annual screening and I have advised the patient that she should screen colonoscopy as an outpatient once discharged when she feels better. She does have a mildly elevated transaminase levels, which is most likely due to the fatty liver disease. However, she would need to be screened for hepatitis serologies and perhaps abdominal ultrasound to rule out other typical pathology in this matter. Treatment would obviously weight control. RECOMMENDATIONS: 1. Push oral intake. 2. Hydration. 3. Check stool cultures and C. diff as well as occult blood. 4. No need to treat diarrhea with antibiotics at this time. 5. Outpatient screening colonoscopy. 6. Check hepatitis serologies and check abdominal ultrasound. Thank you for asking me to participate in the care of this patient. Madison Negron M.D. DR: PATRICIA JOB#: [id number] CC: OLGA
--- NOTE | 2018-01-13 22:45 | History and Physical Report ---
DATE OF ADMISSION: 01/12/2018 ADMISSION HISTORY AND PHYSICAL EXAMINATION PATIENT IDENTIFYING DATA: The patient is a 67-year-old woman who presented with complaints of congestion and upper respiratory tract infection-like symptoms as well as diarrhea, recent fall with head trauma, and fever. 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 She apparently has been hospitalized up to 47 times by her own history, the last time in 2014 at [facility]. Despite this and her multiple chronic medical problems, the patient has been relatively stable recently with her main complaint being symptoms compatible with degenerative arthritis primarily in the left hip and greater trochanteric area. Several months ago, she was advised to take a 7-day course of Naprosyn to treat these symptoms and subsequently her symptoms resolved. More recently, symptoms have returned again although they are relatively mild and not functionally very debilitating. Sometime in the last several days, the patient was reported to have developed cough with congestion and upper respiratory tract-type symptoms. This is in the setting of other family members also having similar symptomatology. The patient complained of some dizziness and general malaise. She did have congestion, but did not feel markedly short of breath. At times, she felt feverish but did not check her temperature. Approximately two days ago, in attempting to get out of bed to go to the bathroom, she reportedly got her legs tangled up in the sheets and fell, scraping her left knee and hitting her left forehead. She does not recall the events clearly and is unable to state if she lost consciousness or not. Since then, she reports she has been feeling generally okay but felt some dizziness and has been weak. She reported some post-event headache associated with tenderness in the left frontal area. Her cousin who is her conservator reported seeing more confusion than usual with the patient and was actually most concerned about an exacerbation of underlying chronic psychiatric disease. Yesterday, apparently the patient was noted to have diarrhea and appeared to be more confused. The patient herself does not recall the episode that was reported by her cousin. The patient was then brought by the family to the [facility] for further evaluation. In the emergency department, the patient was noted to have fever to 100.3, borderline tachycardia, and again symptoms compatible with upper respiratory tract infection with congestion. Her laboratory work reveals normal WBC, normal hematocrit, creatinine of 2.6 with her reported baseline in the 1.6-1.9 region, elevated troponin, elevated proBNP, borderline AST, minimally abnormal urinalysis with 2-4 white cells, and a clear chest x-ray. Because of her fever, her dizziness, respiratory symptoms, her increased azotemia, and reported diarrhea, the patient was admitted for further evaluation and treatment. Currently on examination, the patient reports she is feeling better after overnight intravenous hydration. She denies having any severe respiratory symptoms but does have congestion which is audible. She complains of "dizziness," general weakness and the mild headache, and also after eating two meals with good appetite and with no nausea, vomiting, or abdominal discomfort, she developed cramps and diarrhea on at least two occasions. PAST MEDICAL HISTORY: The patient's past medical history is notable for: 1. Bipolar disease/schizoaffective disorder/history of dissociated disorder with chronic psychosis and history of multiple psychiatric hospitalizations, last in 2014. 2. Hypertension. 3. Diabetes mellitus. 4. Chronic kidney disease, stage 3-4. 5. History of anemia possibly due to iron deficiency. 6. Hypothyroidism. 7. Gout. 8. Degenerative joint disease. 9. History of left medial thigh wound associated with a penetrating wound from fencing material incurred during a psychotic episode, requiring surgical debridement with residual scarring. 10. Menopause in late 50s, status post dilatation and curettage x2. SOCIAL HISTORY: The patient apparently has college education and worked in [employer], but because of her recurrent psychiatric symptoms, she has been conserved by her cousin and currently lives with the cousin's family. She currently does not have history of substance abuse, but has smoked intermittently especially during her psychiatric hospitalizations with the last tobacco usage reported 3-4 years ago. FAMILY HISTORY: Reportedly positive for Alzheimer disease in her father. CURRENT MEDICATIONS: The patient's medication list that she describes currently appears to be somewhat different from that maintained in the office. Whether this is due to noncompliance to changes the patient made on her own or perhaps changes made by other clinicians she had seen in the interim is not entirely clear, but at least in part, it seems to be instability associated with her psychiatric disease. Her current reported medication usage includes amlodipine 10 mg daily, atorvastatin 40 mg nightly, benztropine 1 mg t.i.d., Depakote 250 mg b.i.d. and 1000 mg nightly, docusate 100 mg b.i.d., Prandin 1 mg daily p.r.n. blood sugar greater than 150, Risperdal 2.5 mg nightly. ALLERGIES: No known allergies. REVIEW OF SYSTEMS: The patient's responses are somewhat disoriented and vague, but she denies current chest pain, or shortness of breath. She denies palpitations. She denies abdominal pain except for the cramping just prior to the diarrhea episodes. She denies dysuria, but has had two episodes of urinary incontinence around the time that she had the fall and with her diarrhea. She denies acute joint pain but does report slight discomfort in the right greater trochanteric area which is compatible with her baseline chronic symptomatology. She denies that she has an acute exacerbation of her psychotic symptoms. She denies nausea, vomiting, or other gastrointestinal symptomatology. She has mild headache in the frontal area associated with prior trauma. She denies double vision. PHYSICAL EXAMINATION: VITAL SIGNS: The patient's blood pressure was reportedly 150/99 but this appears to be an error, her earlier blood pressure was 110/60, heart rate was 60, temperature 97.2, respiratory rate 20, oxygen saturation is 95% on room air. GENERAL: The patient is not in overt distress. She has fluent speech with lamar compatible with her baseline and an affect which is cheerrful and also compatible with recent baseline. HEAD AND NECK: Reveals slight area of erythema over the left frontal area with mild tenderness, but no step-offs or changes associated with significant trauma. There are no neck masses. Range of motion of the neck appears to be normal. CHEST: Reveals upper airway congestion and nasal congestion with perhaps some mild end-expiratory wheezing, but no apparent abnormality in air movement currently. CARDIAC: Rhythm appears to be regular. ABDOMEN: Somewhat protuberant but soft, nontender without masses or organomegaly appreciated. EXTREMITIES: Do not reveal evidence of significant edema and there is no calf tenderness. NEUROLOGICAL: The patient's extraocular movements appear to be intact. There was no evidence of nystagmus although after extraocular movement testing, the patient reports the movement causes her slight headache, but she denies double vision. The patient's speech and articulation appeared to be normal. Motor strength in the upper and lower extremities appears to be normal. When the patient sits up at the side of the bed which she does without assistance, she complains of sensation of mild dizziness, but she appears stable in her position with no evidence of abnormal posturing or loss of balance. Standing and gait were not tested. LABORATORY AND DIAGNOSTIC DATA: The patient's white count is 10.0, hematocrit is 39.8, MCV 95, platelet count 176,000. Chemistry showed sodium 139, potassium 3.9, chloride 103, bicarbonate 25, BUN 29, creatinine 2.6, glucose 140. Lactate 1.30. Calcium 9.5. Total bilirubin 0.2, AST 46, ALT 41, alkaline phosphatase 54. Troponin I 0.134. ProBNP 604. Total protein 8.6, albumin 3.4, globulin 5.2. Valproic acid level 67. Urinalysis shows pH of 5, specific gravity 1.010, 2+ protein, 1+ ketones, 2+ occult blood, negative nitrites, 1+ leukocyte esterase, 2-4 rbc's, 2-4 wbc's, moderate epithelial cells, and few bacteria. Stool for occult blood is pending at this time as well as C difficile. Influenza testing revealed negative A and B antigen on the rapid swab. Chest x-ray reveals no acute infiltrates or fluid redistribution. IMPRESSION AND PLAN: The patient presents with a number of symptoms including the fall with post-fall symptoms suggestive of a concussive event. She currently does not exhibit any discrete neurologic focality, but based on the possibility that she had loss of consciousness and possible postconcussive syndrome, the patient will have a CT scan of the head done without contrast. A neurologic consultation has been requested from Dr. Jah Shah. In addition, the patient has apparent upper respiratory tract-type symptoms. Her influenza screen is negative although the sensitivity is such that occult influenza is possibility and that might account for the weakness and slight increased confusion the patient experienced. Other respiratory viruses appeared to be relatively prevalent in the local community at the present time as well and these other influenza-like illnesses could be the underlying etiology. The patient does not have convincing evidence for superimposed bacterial episode at the present time. Therefore, treatment will be primarily symptomatic with use of bronchodilator therapy to stabilize the patient's condition. The patient's diarrhea is also of unclear etiology, but stools will be sent for Clostridium difficile, occult blood, and culture and gastrointestinal consultation has been requested from Dr. Madison Negron to further evaluate the possible etiology for these findings. The possibility that the patient has a psychiatric exacerbation which may have led to behavior triggering some of these symptoms is consideration, but does not appear to be definitively likely given that the patient does have temperature of up to 100.3 on presentation. It also appears the patient has been relatively noncompliant with her medication therapy. Some of it may have been inadvertent or due to multiple providers, but the patient is currently not taking thyroid supplementation and some of her other medications have apparently been discontinued as well; however, it is unclear whether the patient requires some of these other medications so repeat laboratories including TSH, vitamin D level, and glycohemoglobin will be rechecked. The patient will have Accu-Cheks done but no specific therapy initially. The patient has been taking her Prandin p.r.n. which may not be an optimal regimen. The patient might instead benefit from either use of metformin or Januvia in low doses to improve her diabetic control if necessary. The patient's azotemia appears to be somewhat worse than her baseline and may represent volume depletion associated with her diarrhea and her upper respiratory tract symptoms. The patient will receive continued intravenous hydration and followup laboratories will be checked. Should her creatinine remain elevated in this fashion, then nephrologic consultation may be required to assist with management and also determine possibility of renal replacement therapy in the future. The patient will be mobilized with physical therapy. The patient's abnormal troponin and proBNP are most likely associated with the chronic kidney disease and exacerbation of her azotemia, and these will be monitored with further workup as indicated. Additional interventions will be considered once the patient's initial response and additional laboratory data have been analyzed. It should be noted that the patient will be continued on her usual medications other than the stool softener which has been discontinued for the time being given the diarrhea. Azra Lopez M.D. DR: Mj JOB#: [id number] CC: [id number]
[2018-01-14] VITALS: BP 124/59
[2018-01-14 04:00] VITALS: BP 115/57
[2018-01-14] MEDS ORDERED: Repaglinide 1mg tab ORAL PRN (06:30)
[2018-01-14] MEDS: Albuterol/Ipratropium 3ml neb HHN SCH ×3 (06:48→19:40)
[2018-01-14 08:00] VITALS: BP 131/69
[2018-01-14 08:37] LABS: BASOPHILS % (AUTO) 1.2 % (0.0-2.0); EOSINOPHILS % (AUTO) 0.8 % (0.0-3.0); HEMATOCRIT 33.9 % (37.0-47.0); HEMOGLOBIN 11.1 G/DL (12.0-16.0); LYMPHOCYTES % (AUTO) 39.1 % (20.0-45.0); MEAN CORPUSCULAR VOLUME 95 FL (80-99); MONOCYTES % (AUTO) 14.8 % (1.0-10.0); PLATELET COUNT 125 K/UL (150-450); RED BLOOD COUNT 3.56 M/UL (4.20-5.40); WHITE BLOOD COUNT 8.4 K/UL (4.8-10.8)
[2018-01-14] MEDS: Benztropine 1mg tab ORAL SCH ×3 (08:47→17:05)
[2018-01-14 09:17] LABS: ALANINE AMINOTRANSFERASE 28 U/L (12-78); ALBUMIN 2.6 G/DL (3.4-5.0); ALBUMIN/GLOBULIN RATIO 0.6 (1.0-2.7); ALKALINE PHOSPHATASE 40 U/L (46-116); ANION GAP 9 mmol/L (5-15); ASPARTATE AMINO TRANSFERASE 36 U/L (15-37); BILIRUBIN,TOTAL 0.2 MG/DL (0.2-1.0); BLOOD UREA NITROGEN 22 mg/dL (7-18); CALCIUM 8.8 MG/DL (8.5-10.1); CARBON DIOXIDE 26 MMOL/L (21-32); CHLORIDE 112 MMOL/L (98-107); CREATINE KINASE 284 U/L (26-308); CREATININE 2.1 MG/DL (0.55-1.30); POTASSIUM 3.6 MMOL/L (3.5-5.1); SODIUM 146 MMOL/L (136-145)
--- NOTE | 2018-01-14 10:21 | Diagnostic Imaging Report ---
Indication: Head trauma. Headache Technique: Contiguous 5 mm thick transaxial imaging of the head obtained in a Siemens Sensation [address] scanner. Soft tissue and bone windows generated. Automatic Exposure Control was utilized. Total Dose length Product (DLP): [address] Dose Index Volume (CTDIvol): 0.15, 70.38 mGy Comparison: none Findings: The size and configuration of the cortical sulci, basal cisterns, and ventricles are within normal limits for age. There is no mass effect, midline shift, or edema identified. There is no evidence of acute hemorrhage or abnormal intra-axial or extra-axial fluid collections. The bones and soft tissues are unremarkable. There is hyperostosis of the skull. There is mucosal thickening in the paranasal sinuses. Impression: No mass effect, edema or acute bleed. Sinusitis The CT scanner at [facility] is accredited by the [employer] and the scans are performed using dose optimization techniques as appropriate to a performed exam including Automatic Exposure control.
--- NOTE | 2018-01-14 11:20 | General Progress Note ---
Assessment/Plan Problem List: (1) Anemia ICD Codes: D64.9 - Anemia, unspecified SNOMED: 735426106 (2) Diarrhea ICD Codes: R19.7 - Diarrhea, unspecified SNOMED: 84322898 (3) Renal insufficiency ICD Codes: N28.9 - Disorder of kidney and ureter, unspecified SNOMED: 315247403, 165996679 (4) Dehydration ICD Codes: E86.0 - Dehydration SNOMED: 54063137 Assessment/Plan no recurrent diarrhea neg stool for C.diff fu labs Subjective ROS Limited/Unobtainable: Yes Allergies: Coded Allergies: No Known Allergies (Unverified , 07/08/13) Subjective no diarrhea Objective Last 24 Hour Vital Signs Date Time Temp Pulse Resp B/P (MAP) Pulse Ox O2 Delivery O2 Flow Rate FiO2 01/14/18 08:47 66 115/57 01/14/18 08:00 79 01/14/18 08:00 96.6 77 22 131/69 92 Room Air 01/14/18 06:59 66 20 95 Room Air 01/14/18 06:48 66 20 93 Room Air 21 01/14/18 04:00 64 01/14/18 04:00 98.2 61 20 115/57 92 Room Air 01/14/18 02:27 98.2 01/14/18 01:28 101.8 01/14/18 00:00 71 01/14/18 00:00 101.8 71 12 124/59 95 Room Air 01/13/18 20:00 97.5 71 20 137/64 92 Room Air 01/13/18 20:00 66 01/13/18 17:11 68 20 98 Room Air 01/13/18 17:01 66 20 95 Room Air 21 01/13/18 16:00 97.7 67 20 125/58 94 Room Air 01/13/18 16:00 69 01/13/18 12:00 97.2 62 21 150/99 97 Room Air 01/13/18 12:00 64 Intake and Output 01/13/18 01/14/18 19:00 07:00 Intake Total 472 ml 436 ml Balance 472 ml 436 ml Intake Oral 472 ml 436 ml # Voids 1 1 # Bowel Movements 1 Laboratory Tests 01/13/18 14:23: Stool Occult Blood [Pending] 01/13/18 15:20: Stool Occult Blood [Pending] 01/14/18 07:34: White Blood Count 8.4, Red Blood Count 3.56L, Hemoglobin 11.1L, Hematocrit 33.9L , Mean Corpuscular Volume 95, Mean Corpuscular Hemoglobin 31.3H, Mean Corpuscular Hemoglobin Concent 32.8, Red Cell Distribution Width 12.0, Platelet Count 125L, Mean Platelet Volume 8.9, Neutrophils (%) (Auto) 44.0L, Lymphocytes (%) (Auto) 39.1, Monocytes (%) (Auto) 14.8H, Eosinophils (%) (Auto) 0.8, Basophils (%) (Auto) 1.2, Sodium Level 146H, Potassium Level 3.6, Chloride Level 112H, Carbon Dioxide Level 26, Anion Gap 9, Blood Urea Nitrogen 22H, Creatinine 2.1H, Estimat Glomerular Filtration Rate 28.7, Glucose Level 121H, Calcium Level 8.8, Total Bilirubin 0.2, Aspartate Amino Transf (AST/SGOT) 36, Alanine Aminotransferase (ALT/SGPT) 28, Alkaline Phosphatase 40L, Total Creatine Kinase 284, Troponin I 0.137H, Total Protein 6.8, Albumin 2.6L, Globulin 4.2, Albumin/Globulin Ratio 0.6L, Thyroid Stimulating Hormone (TSH) 4.414H, Hepatitis A IgM Antibody [Pending], Hepatitis B Surface Antigen [Pending ], Hepatitis B Core IgM Antibody [Pending], Hepatitis C Antibody [Pending] Height (Feet): 5 Height (Inches): 8.00 Weight (Pounds): 210 General Appearance: no apparent distress EENT: normal ENT inspection Neck: supple Cardiovascular: normal rate Respiratory/Chest: decreased breath sounds Abdomen: normal bowel sounds, non tender, soft Extremities: non-tender JESUS ROGERS Jan 14, 2018 11:20
[2018-01-14 12:00] VITALS: BP 122/59
--- NOTE | 2018-01-14 15:20 | Consultation ---
Consult Note Consult Note NEUROLOGY CONSULTATION: Full note dictated #[id number] 67 y/o, RH, BF with PH of HTN, DM, CKD, schizoaffective disorder and a tremor for numerous years. About a week ago she developed a cough with congestion and upper respiratory tract symptoms. Then in the early hours of 01/11/18 she got up to go to the bathroom. Her legs tangled up in the sheets and she fell down bumping the left forehead and scraping her left knee. She has since had a left frontal headache, dizziness, and has had a few episodes of urinary incontinence. ON EXAM: Mild problems with memory. Globally diminished DTRs in UE with loss of DTRs in lower extremities. Wide based stance and gait. CT brain - benign. IMPRESSION: Possible concussion due to mechanical fall. Essential tremor. Mild UTI and dehydration. REC: Continue present Rx. Mobilize. Minerva Shah M.D., M.S.P.Yosvany. MINERVA SHAH Jan 14, 2018 15:20
[2018-01-14 16:00] VITALS: BP 143/84
--- NOTE | 2018-01-14 19:12 | Geriatric Progress Note ---
Assessment/Plan Problems: (1) Concussion (2) Diabetes (3) Hypothyroid (4) Bipolar 1 disorder, manic, moderate (5) Schizoaffective disorder (6) Dissociative disorder (7) Psychosis (8) Osteoarthritis (9) Obesity (BMI 30.0-34.9) (10) Acute kidney injury (11) Chronic kidney disease, stage 3 (moderate) (12) Diarrhea (13) Elevated troponin (14) Fever Assessment/Plan Patient seems to be improving with return to normal affect, mentation. Apparent underlying pathologies include [place] with fever, URI sxs, and concussion. Diarrhea of uncertain etiology thus far. Will continue hydration but decrease rate, and osmolality. Await various labs to further titrate medications. Mobilize with P.T. Initiate Januvia tx given upward trend in Accucheks. Reviewed with patient who concurs. Discussed with: patient Subjective Interval Events Patient reports feeling much better. Less congested with respiratory treatments. Eating 100%, no further diarrhea at this time. No fever. Has not mobilized, apparently P.T. eval not entered. Seen by Dr. Shah - ? concussion. CT without acute lesion. Seen by Drs. Negron and Chen. Evaluation in progress, but sxs resolving. Labs with improvement in in MASHA. Will change IV to 1/2NS with KCl since Na now up, K borderline. TSH borderline. Vit D pending. Fe studies not entered. Constitutional: Denies: chills, pain, sweats Respiratory: Denies: cough, shortness of breath Cardiovascular: Denies: chest pain, palpitations Gastrointestinal/Abdominal: Denies: abdominal pain, diarrhea Genitourinary: Denies: dysuria Geriatric Geriatric Last 24 Hour Vital Signs Date Time Temp Pulse Resp B/P (MAP) Pulse Ox O2 Delivery O2 Flow Rate FiO2 01/14/18 16:00 72 01/14/18 16:00 97.5 73 18 143/84 95 Room Air 01/14/18 12:32 65 20 94 Room Air 01/14/18 12:22 63 20 93 Room Air 21 01/14/18 12:00 63 01/14/18 12:00 98.1 72 20 122/59 98 Room Air 01/14/18 08:47 66 115/57 01/14/18 08:00 79 01/14/18 08:00 96.6 77 22 131/69 92 Room Air 01/14/18 06:59 66 20 95 Room Air 01/14/18 06:48 66 20 93 Room Air 21 01/14/18 04:00 64 01/14/18 04:00 98.2 61 20 115/57 92 Room Air 01/14/18 02:27 98.2 01/14/18 01:28 101.8 01/14/18 00:00 71 01/14/18 00:00 101.8 71 12 124/59 95 Room Air 01/13/18 20:00 97.5 71 20 137/64 92 Room Air 01/13/18 20:00 66 Intake and Output 01/13/18 01/14/18 19:00 07:00 Intake Total 472 ml 436 ml Balance 472 ml 436 ml Intake Oral 472 ml 436 ml # Voids 1 1 # Bowel Movements 1 Laboratory Tests Test 01/14/18 07:34 White Blood Count 8.4 K/UL (4.8-10.8) Red Blood Count 3.56 M/UL (4.20-5.40) L Hemoglobin 11.1 G/DL (12.0-16.0) L Hematocrit 33.9 % (37.0-47.0) L Mean Corpuscular Volume 95 FL (80-99) Mean Corpuscular Hemoglobin 31.3 PG (27.0-31.0) H Mean Corpuscular Hemoglobin Concent 32.8 G/DL (32.0-36.0) Red Cell Distribution Width 12.0 % (11.6-14.8) Platelet Count 125 K/UL (150-450) L Mean Platelet Volume 8.9 FL (6.5-10.1) Neutrophils (%) (Auto) 44.0 % (45.0-75.0) L Lymphocytes (%) (Auto) 39.1 % (20.0-45.0) Monocytes (%) (Auto) 14.8 % (1.0-10.0) H Eosinophils (%) (Auto) 0.8 % (0.0-3.0) Basophils (%) (Auto) 1.2 % (0.0-2.0) Sodium Level 146 MMOL/L (136-145) H Potassium Level 3.6 MMOL/L (3.5-5.1) Chloride Level 112 MMOL/L (98-107) H Carbon Dioxide Level 26 MMOL/L (21-32) Anion Gap 9 mmol/L (5-15) Blood Urea Nitrogen 22 mg/dL (7-18) H Creatinine 2.1 MG/DL (0.55-1.30) H Estimat Glomerular Filtration Rate 28.7 mL/min (>60) Glucose Level 121 MG/DL (74-106) H Calcium Level 8.8 MG/DL (8.5-10.1) Total Bilirubin 0.2 MG/DL (0.2-1.0) Aspartate Amino Transf (AST/SGOT) 36 U/L (15-37) Alanine Aminotransferase (ALT/SGPT) 28 U/L (12-78) Alkaline Phosphatase 40 U/L (46-116) L Total Creatine Kinase 284 U/L (26-308) Troponin I 0.137 ng/mL (0.000-0.056) Total Protein 6.8 G/DL (6.4-8.2) Albumin 2.6 G/DL (3.4-5.0) L Globulin 4.2 g/dL Albumin/Globulin Ratio 0.6 (1.0-2.7) L Thyroid Stimulating Hormone (TSH) 4.414 uiU/mL (0.358-3.740) Hepatitis A IgM Antibody Pending Hepatitis B Surface Antigen Pending Hepatitis B Core IgM Antibody Pending Hepatitis C Antibody Pending Current Medications Medications (Trade) Dose Ordered Sig/Ruchi Route PRN Reason Start Time Stop Time Status Last Admin Dose Admin Acetaminophen (Tylenol) 650 mg Q4H PRN ORAL Mild Pain/Temp > 100.5 01/13/18 08:45 02/12/18 08:44 01/14/18 01:28 Albuterol/ Ipratropium (Albuterol/ Ipratropium) 3 ml Q6H PRN HHN shortness of breath 01/13/18 14:00 01/18/18 13:59 Albuterol/ Ipratropium (Albuterol/ Ipratropium) 3 ml TIDRT HHN 01/13/18 19:00 01/18/18 18:59 01/14/18 12:22 Amlodipine Besylate (Norvasc) 10 mg DAILY ORAL 01/13/18 09:00 02/12/18 08:59 01/14/18 08:47 Atorvastatin Calcium (Lipitor) 40 mg BEDTIME ORAL 01/13/18 21:00 02/12/18 20:59 01/13/18 21:18 Benztropine Mesylate (Cogentin) 1 mg THREE TIMES A DAY ORAL 01/13/18 09:00 02/12/18 08:59 01/14/18 17:05 Divalproex Sodium (Depakote) 250 mg Q12HR ORAL 01/13/18 09:00 02/12/18 08:59 01/14/18 08:47 Risperidone (RisperDAL) 2.5 mg QHS ORAL 01/13/18 21:30 02/12/18 21:29 01/13/18 21:19 Sitagliptin Phosphate (Januvia) 25 mg ACBREAKFAST ORAL 01/15/18 06:30 02/14/18 06:29 Sodium 1,000 ml @ 50 mls/hr Q20H IV 01/14/18 20:00 02/13/18 19:59 Height (Feet): 5 Height (Inches): 8.00 Weight (Pounds): 210 General Appearance: alert, non-toxic Head: normocephalic Eyes: bilateral anicteric ENT: normal voice Neck: full range of motion, no mass Respiratory: lungs clear Cardiovascular: regular rate, rhythm Gastrointestinal: normal bowel sounds, non tender, soft, no mass, no organomegaly Musculoskeletal: no calf tenderness Edema: no edema noted Generalized Neurologic: alert, oriented x3, no new focality KRISTINA TREJO Jan 14, 2018 19:12
--- NOTE | 2018-01-14 19:45 | Consultation ---
DATE OF CONSULTATION: 01/14/2018 NEUROLOGY CONSULTATION CONSULTING PHYSICIAN: Jah Shah M.D. REQUESTING PHYSICIAN: Azar Lopez M.D. HISTORY: Ms. Chitra Kapoor is a 67-year-old, right-handed, black lady with past history of hypertension, diabetes mellitus, chronic kidney disease, schizoaffective disorder, and tremor for numerous years. She was functioning relatively well until approximately a week ago when she developed cough with congestion and upper respiratory tract symptoms. Other family members had also developed symptoms similar to hers. In the early hours of 01/11/2018, she got up to go to the bathroom. Her legs got tangled up in some sheets and she apparently fell down bumping the left forehead and scraping her left knee. She has since had a left frontal headache, dizziness and lightheadedness, unsteadiness on her feet from time to time, and a few episodes of urinary incontinence. As a result of that, she presented to the [facility] Emergency Room and has since been admitted. This consultation was requested to evaluate the patient for her closed head trauma. As per the patient, she has a mild left frontal headache at this point in time, which was much more severe soon after she bumped the head. She also has had some dizziness and lightheadedness, but today that seems to have resolved. She does feel that the mind was not very clear for the last few days, but it seems to be clearer today. She denies any weakness on one side or the other, numbness on one side or the other, problems with speech, problems with language, problems with vision, or problems with memory. PAST MEDICAL HISTORY: Significant for high blood pressure, diabetes mellitus, chronic kidney disease, schizoaffective disorder, hypothyroidism, and osteoarthritis involving multiple joints. FAMILY HISTORY: Her father had Alzheimer disease. PERSONAL HISTORY: Home: She lives with her cousins. Work: She used to do various different jobs in the past. 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 Habits: She has smoked over the years, but has not smoked for quite sometime now. She has a rare alcoholic drink. She denies the use of any illicit drugs. MEDICATIONS: Present medications include Prandin, Risperdal, Lipitor, albuterol/ipratropium, amlodipine, Cogentin, Depakote 250 mg q.12 h., Tylenol p.r.n., and normal saline given intravenously. PHYSICAL EXAMINATION: GENERAL: She is a well-developed, well-nourished, slightly obese black lady, lying in bed, in no acute distress. VITAL SIGNS: Pulse 65 per minute, blood pressure 122/59 mmHg, respirations 20 per minute, and temperature 98.1 degrees Fahrenheit. HEAD: Normocephalic with small left frontal scalp abrasion, which is well healed. EENT: Examination benign. NECK: No neck rigidity was observed. NEUROLOGICAL EXAMINATION: MENTAL STATUS EXAMINATION: She was awake and alert. She was oriented to person, place, and time. She was able to recall 3/3 words immediately, but could only remember 2/3 words in 1 minute and 3 minutes on the first trial. On the second trial, she was able to remember all 3 words in 1 minute and 3 minutes. She was able to remember presidents, Trump and Obama spontaneously, but needed hints to remember through Rojo Adrian. She was unable to remember presidents prior to that. Her mathematical skills were fairly good. Her visuospatial function was preserved. SPEECH: She had no dysarthria. LANGUAGE: She had no aphasia. CRANIAL NERVE EXAMINATION: II: The visual castaneda were intact to confrontation testing. III, IV & : The external ocular movements were full. The pupils 3 mm in diameter, equal, round, regular, and reactive to light. V: She had normal facial sensations and the temporales, masseters, and pterygoids functioned normally. VII: She had normal facial expressions and no facial asymmetry. VIII: She was able to hear well bilaterally and had no nystagmus. IX: The palate moved symmetrically on phonation. X: She had no hoarseness of voice. XI: The sternocleidomastoids and trapezii functioned normally. XII: The tongue was in the midline without any fasciculations or atrophy. MOTOR SYSTEM: The tone was normal in all four extremities. Examination of muscle mass revealed no focal wasting. Examination of power revealed grade 5/5 power in all muscle groups tested. SENSORY EXAMINATION: She had intact sensations to pinprick, light touch, and graphesthesia. COORDINATION: She performed well on svoume-yx-dwts and dped-aw-evvi testing. On Romberg test, she swayed, but did not fall to one side or the other. REFLEXES: Trace+ and bilaterally symmetrical at the biceps, triceps, and brachioradialis. 0 at both knees and ankles. Her plantar responses were flexor bilaterally. STANCE: She had minimally wide-based, but stable stance. GAIT: She walked with minimally wide-based, but stable gait. DIAGNOSTIC IMPRESSION: 1. Ms. Chitra Kapoor is a 67-year-old, right-handed, black lady, who does have past history of hypertension, diabetes mellitus, chronic kidney disease, schizoaffective disorder, and tremor for numerous years, who about a week ago started to feel unwell with an upper respiratory infection and then on the morning of 01/11/2018, got up to go to the bathroom, got her legs tangled up in her bed sheets, and then fell down and bumped the left side of her forehead scraping her forehead and her left knee. She has since had a left frontal headache, dizziness, unsteadiness, and a few episodes of urinary incontinence. At this point in time, she feels much better. The headache has almost gone away. She has had no dizziness or lightheadedness and she feels generally stronger. 2. On neurological examination, at this time, she does demonstrate mild problems with recent and remote memory, globally diminished deep tendon reflexes in the upper extremities with loss of deep tendon reflexes in the lower extremities, swaying on Romberg test, a wide-based stance, and wide-based gait. 3. The CT scan of the brain without contrast reveals no intracranial pathology. 4. Laboratory data revealed that she was mildly anemic with hemoglobin of 11.1 G and had a low platelet count at 125,000. The chemistry panel revealed that her sodium was elevated to 146, chloride was elevated to 112, BUN was elevated to 22, creatinine was elevated to 2.1, glucose was elevated to 121, and her albumin was low at 2.6. Her TSH was minimally elevated at 4.41. Hervalproic acid level was therapeutic at 67 and her urinalysis revealed 1+ leukocyte esterase, 2-4 red blood cells, and 2-4 white blood cells per high-power field. 5. The patient's history and neurological examination are most compatible with a recent upper respiratory infection, most probably of viral nature. This was followed by a mechanical fall and a closed head injury with an abrasion over the left frontal scalp. 6. There is a possibility that the patient may have had a concussion associated with the closed head trauma. 7. She also has signs of an essential tremor, which she states she has had for numerous years. She also has mild urinary tract infection and was dehydrated when she came in. RECOMMENDATIONS: 1. Agree with management thus far. 2. Agree with correcting the patient's toxic metabolic imbalances. 3. The patient should be kept as active as possible. 4. The patient should be observed and depending on how she fares, further recommendations will be given. Thank you for entrusting me with the care of Ms. Kapoor. I shall follow her with you. Jah Shah M.D., M.S.P.H. DR: TYESHA JOB#: [id number]
[2018-01-14 20:00] VITALS: BP 118/64
[2018-01-14] MEDS: 1/2NS w/KCl 20mEq 1000ml 1,000 ML IV SCH (20:47)
[2018-01-14] MEDS: Atorvastatin 20mg tab ORAL SCH (20:53)
[2018-01-15] VITALS: BP 105/59
[2018-01-15 04:00] VITALS: BP 120/56
[2018-01-15] MEDS: sitaGLIPtin 25mg tab ORAL SCH (06:30)
[2018-01-15] MEDS: Albuterol/Ipratropium 3ml neb HHN SCH ×3 (07:35→19:21)
[2018-01-15 07:38] LABS: BASOPHILS % (AUTO) 0.8 % (0.0-2.0); EOSINOPHILS % (AUTO) 1.7 % (0.0-3.0); HEMATOCRIT 33.1 % (37.0-47.0); MEAN CORPUSCULAR VOLUME 94 FL (80-99); MONOCYTES % (AUTO) 12.7 % (1.0-10.0); NEUTROPHILS % (AUTO) 52.8 % (45.0-75.0); PLATELET COUNT 132 K/UL (150-450); RED BLOOD COUNT 3.52 M/UL (4.20-5.40); RED CELL DISTRIBUTION WIDTH 11.9 % (11.6-14.8); WHITE BLOOD COUNT 7.3 K/UL (4.8-10.8)
[2018-01-15 08:00] VITALS: BP 120/68
[2018-01-15 08:08] LABS: % IRON SATURATION 36 % (15-50); IRON 67 ug/dL (50-175); TOTAL IRON BINDING CAPACITY 185 ug/dL (250-450)
[2018-01-15 08:24] LABS: ALANINE AMINOTRANSFERASE 31 U/L (12-78); ALBUMIN 2.8 G/DL (3.4-5.0); ALBUMIN/GLOBULIN RATIO 0.6 (1.0-2.7); ALKALINE PHOSPHATASE 44 U/L (46-116); ANION GAP 6 mmol/L (5-15); ASPARTATE AMINO TRANSFERASE 27 U/L (15-37); BILIRUBIN,TOTAL 0.3 MG/DL (0.2-1.0); BLOOD UREA NITROGEN 21 mg/dL (7-18); CALCIUM 8.9 MG/DL (8.5-10.1); CARBON DIOXIDE 28 MMOL/L (21-32); CHLORIDE 112 MMOL/L (98-107); CREATININE 1.9 MG/DL (0.55-1.30); FERRITIN 569 NG/ML (8-388); POTASSIUM 4.3 MMOL/L (3.5-5.1); SODIUM 146 MMOL/L (136-145)
[2018-01-15] MEDS: Benztropine 1mg tab ORAL SCH ×3 (08:36→16:58)
--- NOTE | 2018-01-15 09:00 | General Progress Note ---
Assessment/Plan Problem List: (1) Anemia ICD Codes: D64.9 - Anemia, unspecified SNOMED: 490738044 (2) Diarrhea ICD Codes: R19.7 - Diarrhea, unspecified SNOMED: 53588195 (3) Renal insufficiency ICD Codes: N28.9 - Disorder of kidney and ureter, unspecified SNOMED: 934946430, 139387223 (4) Dehydration ICD Codes: E86.0 - Dehydration SNOMED: 75846134 Assessment/Plan no recurrent diarrhea neg stool for C.diff fu labs fu abd us Subjective ROS Limited/Unobtainable: Yes Allergies: Coded Allergies: No Known Allergies (Unverified , 07/08/13) Subjective no diarrhea Objective Last 24 Hour Vital Signs Date Time Temp Pulse Resp B/P (MAP) Pulse Ox O2 Delivery O2 Flow Rate FiO2 01/15/18 08:36 75 120/68 01/15/18 08:00 97.7 75 22 120/68 100 Room Air 01/15/18 07:20 74 20 99 Room Air 01/15/18 07:14 70 20 99 Room Air 01/15/18 04:00 97.3 67 20 120/56 92 Room Air 01/15/18 04:00 66 01/15/18 00:00 69 01/15/18 00:00 97.5 60 20 105/59 92 Room Air 01/14/18 20:00 72 01/14/18 20:00 97.9 72 20 118/64 93 Room Air 01/14/18 19:57 65 20 94 Room Air 01/14/18 19:40 69 20 95 Room Air 21 01/14/18 16:00 72 01/14/18 16:00 97.5 73 18 143/84 95 Room Air 01/14/18 12:32 65 20 94 Room Air 01/14/18 12:22 63 20 93 Room Air 21 01/14/18 12:00 63 01/14/18 12:00 98.1 72 20 122/59 98 Room Air Intake and Output 01/14/18 01/15/18 19:00 07:00 Intake Total 2162 ml 512 ml Output Total 1350 ml Balance 812 ml 512 ml Intake Oral 700 ml IV Total 1462 ml 512 ml Output Urine Total 1350 ml # Voids 2 6 Laboratory Tests 01/15/18 07:15: White Blood Count 7.3, Red Blood Count 3.52L, Hemoglobin 11.0L, Hematocrit 33.1L , Mean Corpuscular Volume 94, Mean Corpuscular Hemoglobin 31.3H, Mean Corpuscular Hemoglobin Concent 33.3, Red Cell Distribution Width 11.9, Platelet Count 132L, Mean Platelet Volume 8.9, Neutrophils (%) (Auto) 52.8, Lymphocytes ( %) (Auto) 32.0, Monocytes (%) (Auto) 12.7H, Eosinophils (%) (Auto) 1.7, Basophils (%) (Auto) 0.8, Sodium Level 146H, Potassium Level 4.3, Chloride Level 112H, Carbon Dioxide Level 28, Anion Gap 6, Blood Urea Nitrogen 21H, Creatinine 1.9H, Estimat Glomerular Filtration Rate 32.2, Glucose Level 131H, Hemoglobin A1c [Pending], Calcium Level 8.9, Iron Level 67, Total Iron Binding Capacity 185L, Percent Iron Saturation 36, Unsaturated Iron Binding 118, Ferritin 569H, Total Bilirubin 0.3, Aspartate Amino Transf (AST/SGOT) 27, Alanine Aminotransferase (ALT/SGPT) 31, Alkaline Phosphatase 44L, Total Protein 7.4, Albumin 2.8L, Globulin 4.6, Albumin/Globulin Ratio 0.6L, Thyroid Stimulating Hormone (TSH) 3.489, Free Thyroxine 1.09, Triiodothyonine (T3) [ Pending] Height (Feet): 5 Height (Inches): 8.00 Weight (Pounds): 210 General Appearance: no apparent distress EENT: normal ENT inspection Neck: supple Cardiovascular: normal rate Respiratory/Chest: decreased breath sounds Abdomen: normal bowel sounds, non tender, soft Extremities: non-tender JESUS ROGERS Jan 15, 2018 09:00
[2018-01-15 12:00] VITALS: BP 128/73
--- NOTE | 2018-01-15 14:57 | Neurology Progress Note ---
Interim History Interim History Interim History Ms. Kapoor feels much better today. She has no headache. The dizziness has also resolved. She did some walking today and felt steady on her feet. Her tremor is better today. She denies any new neurologic symptoms. Review of Systems Neuro Review of Systems Benign. Objective Physical Exam Last Vital Signs Date Time Temp Pulse Resp B/P (MAP) Pulse Ox O2 Delivery O2 Flow Rate FiO2 01/15/18 12:07 71 18 99 Room Air 01/15/18 12:05 21 01/15/18 12:00 98.1 128/73 Laboratory Tests Test 01/15/18 07:15 White Blood Count 7.3 K/UL (4.8-10.8) Red Blood Count 3.52 M/UL (4.20-5.40) L Hemoglobin 11.0 G/DL (12.0-16.0) L Hematocrit 33.1 % (37.0-47.0) L Mean Corpuscular Volume 94 FL (80-99) Mean Corpuscular Hemoglobin 31.3 PG (27.0-31.0) H Mean Corpuscular Hemoglobin Concent 33.3 G/DL (32.0-36.0) Red Cell Distribution Width 11.9 % (11.6-14.8) Platelet Count 132 K/UL (150-450) L Mean Platelet Volume 8.9 FL (6.5-10.1) Neutrophils (%) (Auto) 52.8 % (45.0-75.0) Lymphocytes (%) (Auto) 32.0 % (20.0-45.0) Monocytes (%) (Auto) 12.7 % (1.0-10.0) H Eosinophils (%) (Auto) 1.7 % (0.0-3.0) Basophils (%) (Auto) 0.8 % (0.0-2.0) Sodium Level 146 MMOL/L (136-145) H Potassium Level 4.3 MMOL/L (3.5-5.1) Chloride Level 112 MMOL/L (98-107) H Carbon Dioxide Level 28 MMOL/L (21-32) Anion Gap 6 mmol/L (5-15) Blood Urea Nitrogen 21 mg/dL (7-18) H Creatinine 1.9 MG/DL (0.55-1.30) H Estimat Glomerular Filtration Rate 32.2 mL/min (>60) Glucose Level 131 MG/DL (74-106) H Hemoglobin A1c 9.1 % (4.3-6.0) H Calcium Level 8.9 MG/DL (8.5-10.1) Iron Level 67 ug/dL (50-175) Total Iron Binding Capacity 185 ug/dL (250-450) L Percent Iron Saturation 36 % (15-50) Unsaturated Iron Binding 118 ug/dL (112-346) Ferritin 569 NG/ML (8-388) H Total Bilirubin 0.3 MG/DL (0.2-1.0) Aspartate Amino Transf (AST/SGOT) 27 U/L (15-37) Alanine Aminotransferase (ALT/SGPT) 31 U/L (12-78) Alkaline Phosphatase 44 U/L (46-116) L Total Protein 7.4 G/DL (6.4-8.2) Albumin 2.8 G/DL (3.4-5.0) L Globulin 4.6 g/dL Albumin/Globulin Ratio 0.6 (1.0-2.7) L Thyroid Stimulating Hormone (TSH) 3.489 uiU/mL (0.358-3.740) Free Thyroxine 1.09 NG/DL (0.76-1.46) Triiodothyonine (T3) Pending Neurologic Exam Objective PHYSICAL EXAMINATION: GENERAL: She is a well-developed, well-nourished, slightly obese black lady, lying in bed, in no acute distress. HEAD: Normocephalic with small left frontal scalp abrasion, which is well healed. EENT: Examination benign. NECK: No neck rigidity was observed. NEUROLOGICAL EXAMINATION: MENTAL STATUS EXAMINATION: She was awake and alert. She was oriented to person, place, and time. She was able to recall 3/3 words immediately, and in 1 minute and 3 minutes. She was able to remember presidents, Trump through Rojo Senior spontaneously. Her mathematical skills were fairly good. Her visuospatial function was preserved. SPEECH: She had no dysarthria. LANGUAGE: She had no aphasia. CRANIAL NERVE EXAMINATION: II: The visual castaneda were intact to confrontation testing. III, IV & : The external ocular movements were full. The pupils 3 mm in diameter, equal, round, regular, and reactive to light. V: She had normal facial sensations and the temporales, masseters, and pterygoids functioned normally. VII: She had normal facial expressions and no facial asymmetry. VIII: She was able to hear well bilaterally and had no nystagmus. IX: The palate moved symmetrically on phonation. X: She had no hoarseness of voice. XI: The sternocleidomastoids and trapezii functioned normally. XII: The tongue was in the midline without any fasciculations or atrophy. MOTOR SYSTEM: The tone was normal in all four extremities. Examination of muscle mass revealed no focal wasting. Examination of power revealed grade 5/5 power in all muscle groups tested. SENSORY EXAMINATION: She had intact sensations to pinprick, light touch, and graphesthesia. COORDINATION: She performed well on plnhth-rt-eqws and crsg-za-lpbf testing. On Romberg test, she swayed, but did not fall to one side or the other. REFLEXES: Trace+ and bilaterally symmetrical at the biceps, triceps, and brachioradialis. 0 at both knees and ankles. Her plantar responses were flexor bilaterally. STANCE: She had minimally wide-based, but stable stance. GAIT: She walked with minimally wide-based, but stable gait. Impression/Recommendations Diagnostic Impression 1. Ms. Chitra Kapoor is a 67-year-old, right-handed, black lady, who does have past history of hypertension, diabetes mellitus, chronic kidney disease, schizoaffective disorder, and tremor for numerous years, who about a week ago started to feel unwell with an upper respiratory infection and then on the morning of 01/11/2018, got up to go to the bathroom, got her legs tangled up in her bed sheets, and then fell down and bumped the left side of her forehead scraping her forehead and her left knee. She has since had a left frontal headache, dizziness, unsteadiness, and a few episodes of urinary incontinence. 2. At this point in time, she feels much better. The headache has resolved. She has had no dizziness or lightheadedness and she feels generally stronger. She has had no further episodes of urinary incontinence. 3. On neurological examination, at this time, she does demonstrate globally diminished deep tendon reflexes in the upper extremities with loss of deep tendon reflexes in the lower extremities, swaying on Romberg test, a wide-based stance, and wide-based gait. 4. The CT scan of the brain without contrast reveals no intracranial pathology. 5. Laboratory data on my initial evaluation revealed that she was mildly anemic with hemoglobin of 11.1 G and had a low platelet count at 125,000. The chemistry panel revealed that her sodium was elevated to 146, chloride was elevated to 112, BUN was elevated to 22, creatinine was elevated to 2.1, glucose was elevated to 121, and her albumin was low at 2.6. Her TSH was minimally elevated at 4.41. Her valproic acid level was therapeutic at 67 and her urinalysis revealed 1+ leukocyte esterase, 2-4 red blood cells, and 2-4 white blood cells per high-power field. 6. The patient's history and neurological examination are most compatible with a recent upper respiratory infection, most probably of viral nature. This was followed by a mechanical fall and a closed head injury with an abrasion over the left frontal scalp. 7. There is a possibility that the patient may have had a concussion associated with the closed head trauma. He concussive symptoms are significantly better today. 8. Her essential tremor is better. Recommendations 1. Continue present management. 2. Continue to correct toxic metabolic imbalances. 3. The patient should be kept as active as possible and mobilized. 4. Increase activity as tolerated. Minerva Shah M.D., M.S.P.MINERVA ARCEO Jan 15, 2018 14:57
[2018-01-15 16:00] VITALS: BP 128/64
[2018-01-15] MEDS: 1/2NS w/KCl 20mEq 1000ml 1,000 ML IV SCH (16:01)
--- NOTE | 2018-01-15 17:59 | Geriatric Progress Note ---
Assessment/Plan Problems: (1) Concussion (2) Diabetes (3) Hypothyroid (4) Bipolar 1 disorder, manic, moderate (5) Schizoaffective disorder (6) Dissociative disorder (7) Psychosis (8) Osteoarthritis (9) Obesity (BMI 30.0-34.9) (10) Acute kidney injury (11) Chronic kidney disease, stage 3 (moderate) (12) Diarrhea (13) Elevated troponin (14) Fever Assessment/Plan Returning to baseline function. Probable resolving mild concussion. Outpatient f/u per Dr. Shah. Diarrhea resolved, OB+. Check additional stool, repeat CBC. If stable, outpatient evaluation including colonoscopy recommended. Urinary incontinence resolving. External female cath, d/c and monitor. Given elevated, glycohemoglobin, start Januvia. Discussed in detail with conservator [cousin] and patient. Gisela refused this am, but now agreeable to trial. Reviewed situation, prognosis, d/c plans in great detail with conservator including questions re IHSS, CBAS. All issues discussed, conservator concurs with current approach. Expect d/c soon with outpatient P.T. Discussed with: patient, conservator, hospital staff Subjective Interval Events Patient reports feeling much better. No further diarrhea, reports better control of urine. Abd u/s done, reading pending. P.T. eval completed, tx recommended. Labs with OB+ x 2. Glycohemoglobin 9.1%. Repeat TSH nl, with appropriate T4. Cr down to 1.9, close to recent baseline. Staff notes patient generally doing well. Constitutional: Denies: chills, pain, fever Respiratory: Denies: shortness of breath Cardiovascular: Denies: chest pain, palpitations Gastrointestinal/Abdominal: Denies: abdominal pain, diarrhea, nausea, vomiting Genitourinary: Denies: dysuria Musculoskeletal: Denies: joint pain Neurologic: Denies: headache, dizziness Geriatric Geriatric Last 24 Hour Vital Signs Date Time Temp Pulse Resp B/P (MAP) Pulse Ox O2 Delivery O2 Flow Rate FiO2 01/15/18 16:00 97.7 74 20 128/64 93 Room Air 01/15/18 12:07 71 18 99 Room Air 01/15/18 12:05 68 18 99 Room Air 21 01/15/18 12:00 98.1 70 20 128/73 95 Room Air 01/15/18 12:00 67 2/18/18 08:36 75 120/68 01/15/18 08:00 97.7 75 22 120/68 100 Room Air 01/15/18 08:00 81 01/15/18 07:20 74 20 99 Room Air 01/15/18 07:14 70 20 99 Room Air 21 01/15/18 04:00 97.3 67 20 120/56 92 Room Air 01/15/18 04:00 66 01/15/18 00:00 69 01/15/18 00:00 97.5 60 20 105/59 92 Room Air 01/14/18 20:00 72 01/14/18 20:00 97.9 72 20 118/64 93 Room Air 01/14/18 19:57 65 20 94 Room Air 01/14/18 19:40 69 20 95 Room Air 21 Intake and Output 01/14/18 01/15/18 19:00 07:00 Intake Total 2162 ml 512 ml Output Total 1350 ml Balance 812 ml 512 ml Intake Oral 700 ml IV Total 1462 ml 512 ml Output Urine Total 1350 ml # Voids 2 6 Laboratory Tests Test 01/15/18 07:15 White Blood Count 7.3 K/UL (4.8-10.8) Red Blood Count 3.52 M/UL (4.20-5.40) L Hemoglobin 11.0 G/DL (12.0-16.0) L Hematocrit 33.1 % (37.0-47.0) L Mean Corpuscular Volume 94 FL (80-99) Mean Corpuscular Hemoglobin 31.3 PG (27.0-31.0) H Mean Corpuscular Hemoglobin Concent 33.3 G/DL (32.0-36.0) Red Cell Distribution Width 11.9 % (11.6-14.8) Platelet Count 132 K/UL (150-450) L Mean Platelet Volume 8.9 FL (6.5-10.1) Neutrophils (%) (Auto) 52.8 % (45.0-75.0) Lymphocytes (%) (Auto) 32.0 % (20.0-45.0) Monocytes (%) (Auto) 12.7 % (1.0-10.0) H Eosinophils (%) (Auto) 1.7 % (0.0-3.0) Basophils (%) (Auto) 0.8 % (0.0-2.0) Sodium Level 146 MMOL/L (136-145) H Potassium Level 4.3 MMOL/L (3.5-5.1) Chloride Level 112 MMOL/L (98-107) H Carbon Dioxide Level 28 MMOL/L (21-32) Anion Gap 6 mmol/L (5-15) Blood Urea Nitrogen 21 mg/dL (7-18) H Creatinine 1.9 MG/DL (0.55-1.30) H Estimat Glomerular Filtration Rate 32.2 mL/min (>60) Glucose Level 131 MG/DL (74-106) H Hemoglobin A1c 9.1 % (4.3-6.0) H Calcium Level 8.9 MG/DL (8.5-10.1) Iron Level 67 ug/dL (50-175) Total Iron Binding Capacity 185 ug/dL (250-450) L Percent Iron Saturation 36 % (15-50) Unsaturated Iron Binding 118 ug/dL (112-346) Ferritin 569 NG/ML (8-388) H Total Bilirubin 0.3 MG/DL (0.2-1.0) Aspartate Amino Transf (AST/SGOT) 27 U/L (15-37) Alanine Aminotransferase (ALT/SGPT) 31 U/L (12-78) Alkaline Phosphatase 44 U/L (46-116) L Total Protein 7.4 G/DL (6.4-8.2) Albumin 2.8 G/DL (3.4-5.0) L Globulin 4.6 g/dL Albumin/Globulin Ratio 0.6 (1.0-2.7) L Thyroid Stimulating Hormone (TSH) 3.489 uiU/mL (0.358-3.740) Free Thyroxine 1.09 NG/DL (0.76-1.46) Triiodothyonine (T3) Pending Current Medications Medications (Trade) Dose Ordered Sig/Ruchi Route PRN Reason Start Time Stop Time Status Last Admin Dose Admin Acetaminophen (Tylenol) 650 mg Q4H PRN ORAL Mild Pain/Temp > 100.5 01/13/18 08:45 02/12/18 08:44 01/14/18 01:28 Albuterol/ Ipratropium (Albuterol/ Ipratropium) 3 ml Q6H PRN HHN shortness of breath 01/13/18 14:00 01/18/18 13:59 Albuterol/ Ipratropium (Albuterol/ Ipratropium) 3 ml TIDRT HHN 01/13/18 19:00 01/18/18 18:59 01/15/18 12:01 Amlodipine Besylate (Norvasc) 10 mg DAILY ORAL 01/13/18 09:00 02/12/18 08:59 01/15/18 08:36 Atorvastatin Calcium (Lipitor) 40 mg BEDTIME ORAL 01/13/18 21:00 02/12/18 20:59 01/14/18 20:53 Benztropine Mesylate (Cogentin) 1 mg THREE TIMES A DAY ORAL 01/13/18 09:00 02/12/18 08:59 01/15/18 16:58 Divalproex Sodium (Depakote) 250 mg Q12HR ORAL 01/13/18 09:00 02/12/18 08:59 01/15/18 08:36 Risperidone (RisperDAL) 2.5 mg QHS ORAL 01/13/18 21:30 02/12/18 21:29 01/14/18 20:53 Sitagliptin Phosphate (Januvia) 25 mg ACBREAKFAST ORAL 01/15/18 06:30 02/14/18 06:29 Height (Feet): 5 Height (Inches): 8.00 Weight (Pounds): 210 General Appearance: alert, non-toxic Eyes: bilateral anicteric ENT: normal voice Neck: full range of motion, no mass Respiratory: lungs clear Cardiovascular: regular rate, rhythm Gastrointestinal: normal bowel sounds, non tender, soft, no mass, no organomegaly Edema: no edema noted Generalized Neurologic: alert, no new focality KRISTINA TREJO Jan 15, 2018 17:59
[2018-01-15 19:06] LABS: ANION GAP 7 mmol/L (5-15); BLOOD UREA NITROGEN 20 mg/dL (7-18); CALCIUM 8.8 MG/DL (8.5-10.1); CARBON DIOXIDE 26 MMOL/L (21-32); CHLORIDE 109 MMOL/L (98-107); CREATININE 1.9 MG/DL (0.55-1.30); POTASSIUM 4.2 MMOL/L (3.5-5.1); SODIUM 142 MMOL/L (136-145)
[2018-01-15 20:00] VITALS: BP 129/69
[2018-01-15] MEDS: Atorvastatin 20mg tab ORAL SCH (20:51)
[2018-01-16] VITALS: BP_SYST 121; BP_SYST 131; BP_DIAS 55; BP_DIAS 88
[2018-01-16 04:00] VITALS: BP 126/65
[2018-01-16] MEDS: sitaGLIPtin 25mg tab ORAL SCH (06:38)
[2018-01-16 07:41] LABS: EOSINOPHILS % (AUTO) 2.3 % (0.0-3.0); HEMATOCRIT 34.1 % (37.0-47.0); HEMOGLOBIN 11.3 G/DL (12.0-16.0); LYMPHOCYTES % (AUTO) 34.7 % (20.0-45.0); MEAN CORPUSCULAR VOLUME 95 FL (80-99); MONOCYTES % (AUTO) 11.8 % (1.0-10.0); NEUTROPHILS % (AUTO) 50.2 % (45.0-75.0); PLATELET COUNT 149 K/UL (150-450); RED BLOOD COUNT 3.59 M/UL (4.20-5.40); RED CELL DISTRIBUTION WIDTH 12.3 % (11.6-14.8); WHITE BLOOD COUNT 7.1 K/UL (4.8-10.8)
[2018-01-16 08:00] VITALS: BP 131/71
--- NOTE | 2018-01-16 08:21 | Diagnostic Imaging Report ---
Indication: Abnormal renal function tests, abdominal pain Technique: Guerra-scale and duplex images of the upper abdomen were obtained Comparison: none Findings: Gallbladder is unremarkable, without stones, wall thickening, nor pericholecystic fluid. Sonographic Lester's sign is negative. Common bile duct measures to mm in diameter. No intrahepatic biliary ductal dilatation. Liver demonstrates normal echogenicity, no focal abnormality. Portal vein and hepatic veins are patent. Pancreas is incompletely visualized due to overlying bowel gas, visualized portions are unremarkable. Spleen is unremarkable. Left kidney measures 12.1 cm in length. Right kidney measures 10.4 cm length. Left kidney demonstrates equivocally increased echogenicity. There is no hydronephrosis. There are bilateral renal cysts . Non-aneurysmal abdominal aorta . Impression: No acute abnormality. Negative for gallstones or dilated ducts Equivocal increased left renal echogenicity, atrial could indicate medical renal disease Incidental finding bilateral renal cysts Suboptimal visualization of the pancreas
[2018-01-16] MEDS: Albuterol/Ipratropium 3ml neb HHN SCH ×2 (08:24→14:18)
[2018-01-16] MEDS: Benztropine 1mg tab ORAL SCH ×3 (09:09→18:00)
--- NOTE | 2018-01-16 10:25 | General Progress Note ---
Assessment/Plan Assessment/Plan Assessment - Acute,mild diarrhea - resolved - mildly abnormal LFT - resolved, negative ultrasound and hepatitis serologies - OB (+) 12/30 - needs GI w/u - respiratory infection - Azotemia Recommendations - follow symptoms - PO as tolerated - Outpatient Endoscopy and colonoscopy Subjective Allergies: Coded Allergies: No Known Allergies (Unverified , 07/08/13) Subjective Feels better overall no diarrhea x 3 days tolerating PO OB (+) LFT now normalized Objective Last 24 Hour Vital Signs Date Time Temp Pulse Resp B/P (MAP) Pulse Ox O2 Delivery O2 Flow Rate FiO2 01/16/18 09:10 72 131/71 01/16/18 08:25 72 20 96 Room Air 21 01/16/18 08:00 97.0 72 18 131/71 95 Room Air 01/16/18 04:00 63 01/16/18 04:00 98.1 68 20 126/65 98 Room Air 01/16/18 00:00 97.5 74 20 121/55 95 Room Air 01/16/18 00:00 68 01/15/18 20:00 75 01/15/18 20:00 96.0 73 20 129/69 97 Room Air 01/15/18 19:32 66 18 99 Room Air 01/15/18 19:21 64 18 98 Room Air 21 01/15/18 16:00 62 01/15/18 16:00 97.7 74 20 128/64 93 Room Air 01/15/18 12:07 71 18 99 Room Air 01/15/18 12:05 68 18 99 Room Air 21 01/15/18 12:00 98.1 70 20 128/73 95 Room Air 01/15/18 12:00 67 Intake and Output 01/15/18 01/16/18 19:00 07:00 Intake Total 990 ml Output Total 1175 ml Balance -185 ml Intake Oral 470 ml IV Total 520 ml Output Urine Total 1175 ml # Voids 4 Laboratory Tests 01/15/18 18:20: Sodium Level 142, Potassium Level 4.2, Chloride Level 109H, Carbon Dioxide Level 26, Anion Gap 7, Blood Urea Nitrogen 20H, Creatinine 1.9H, Estimat Glomerular Filtration Rate 32.2, Glucose Level 159H, Calcium Level 8.8 01/16/18 07:00: White Blood Count 7.1, Red Blood Count 3.59L, Hemoglobin 11.3L, Hematocrit 34.1L , Mean Corpuscular Volume 95, Mean Corpuscular Hemoglobin 31.5H, Mean Corpuscular Hemoglobin Concent 33.1, Red Cell Distribution Width 12.3, Platelet Count 149L, Mean Platelet Volume 9.2, Neutrophils (%) (Auto) 50.2, Lymphocytes ( %) (Auto) 34.7, Monocytes (%) (Auto) 11.8H, Eosinophils (%) (Auto) 2.3, Basophils (%) (Auto) 1.0 Height (Feet): 5 Height (Inches): 8.00 Weight (Pounds): 210 SIMBAAMARIS Jan 16, 2018 10:25
[2018-01-16 12:00] VITALS: BP 126/58
[2018-01-16 16:00] VITALS: BP 125/66
[2018-01-16] MEDS ORDERED: JANUVIA25 MG ORAL (16:12)
[2018-01-16] MEDS ORDERED: RISPERDAL1 MG ORAL (16:12)
[2018-01-16] MEDS ORDERED: DEPAKOTE250 MG ORAL (16:12)
--- NOTE | 2018-01-16 16:29 | Geriatric Progress Note ---
Assessment/Plan Problems: (1) Concussion (2) Diabetes (3) Hypothyroid (4) Bipolar 1 disorder, manic, moderate (5) Schizoaffective disorder (6) Dissociative disorder (7) Psychosis (8) Osteoarthritis (9) Obesity (BMI 30.0-34.9) (10) Acute kidney injury (11) Chronic kidney disease, stage 3 (moderate) (12) Diarrhea (13) Elevated troponin (14) Fever Assessment/Plan Appears OK to return home. Labs to baseline. D/c on prior meds + Januvia 25mg daily. F/u with Dr. Shah, Dr. Negron, outpatient P.T. Resume Reflections. Dictated #[id number] Discussed with: patient, hospital staff Subjective Interval Events Patient smiling reports she feels well enough to return home. Ambulated well with P.T. SBA. Eating well, no diarrhea. No b.m. so third OB not available. Labs stable. Tolerating Januvia. Staff reports no functional change. Constitutional: Denies: chills, pain, fever Respiratory: Denies: cough, shortness of breath Cardiovascular: Denies: chest pain, palpitations Gastrointestinal/Abdominal: Denies: abdominal pain, constipation, diarrhea, nausea, vomiting Genitourinary: Denies: dysuria Musculoskeletal: Denies: joint pain Geriatric Geriatric Last 24 Hour Vital Signs Date Time Temp Pulse Resp B/P (MAP) Pulse Ox O2 Delivery O2 Flow Rate FiO2 01/16/18 14:28 65 18 100 Room Air 01/16/18 14:18 71 18 96 Room Air 21 01/16/18 12:00 69 01/16/18 12:00 97.2 67 18 126/58 95 Room Air 01/16/18 09:10 72 131/71 01/16/18 08:36 74 20 98 Room Air 01/16/18 08:25 72 20 96 Room Air 21 01/16/18 08:00 97.0 72 18 131/71 95 Room Air 01/16/18 08:00 63 01/16/18 04:00 63 01/16/18 04:00 98.1 68 20 126/65 98 Room Air 01/16/18 00:00 97.5 74 20 121/55 95 Room Air 01/16/18 00:00 68 01/15/18 20:00 75 01/15/18 20:00 96.0 73 20 129/69 97 Room Air 01/15/18 19:32 66 18 99 Room Air 01/15/18 19:21 64 18 98 Room Air 21 Intake and Output 01/15/18 01/16/18 19:00 07:00 Intake Total 990 ml Output Total 1175 ml Balance -185 ml Intake Oral 470 ml IV Total 520 ml Output Urine Total 1175 ml # Voids 4 Laboratory Tests Test 01/15/18 18:20 01/16/18 07:00 Sodium Level 142 MMOL/L (136-145) Potassium Level 4.2 MMOL/L (3.5-5.1) Chloride Level 109 MMOL/L (98-107) H Carbon Dioxide Level 26 MMOL/L (21-32) Anion Gap 7 mmol/L (5-15) Blood Urea Nitrogen 20 mg/dL (7-18) H Creatinine 1.9 MG/DL (0.55-1.30) H Estimat Glomerular Filtration Rate 32.2 mL/min (>60) Glucose Level 159 MG/DL (74-106) H Calcium Level 8.8 MG/DL (8.5-10.1) White Blood Count 7.1 K/UL (4.8-10.8) Red Blood Count 3.59 M/UL (4.20-5.40) L Hemoglobin 11.3 G/DL (12.0-16.0) L Hematocrit 34.1 % (37.0-47.0) L Mean Corpuscular Volume 95 FL (80-99) Mean Corpuscular Hemoglobin 31.5 PG (27.0-31.0) H Mean Corpuscular Hemoglobin Concent 33.1 G/DL (32.0-36.0) Red Cell Distribution Width 12.3 % (11.6-14.8) Platelet Count 149 K/UL (150-450) L Mean Platelet Volume 9.2 FL (6.5-10.1) Neutrophils (%) (Auto) 50.2 % (45.0-75.0) Lymphocytes (%) (Auto) 34.7 % (20.0-45.0) Monocytes (%) (Auto) 11.8 % (1.0-10.0) H Eosinophils (%) (Auto) 2.3 % (0.0-3.0) Basophils (%) (Auto) 1.0 % (0.0-2.0) Current Medications Medications (Trade) Dose Ordered Sig/Ruchi Route PRN Reason Start Time Stop Time Status Last Admin Dose Admin Acetaminophen (Tylenol) 650 mg Q4H PRN ORAL Mild Pain/Temp > 100.5 01/13/18 08:45 02/12/18 08:44 01/14/18 01:28 Albuterol/ Ipratropium (Albuterol/ Ipratropium) 3 ml Q6H PRN HHN shortness of breath 01/13/18 14:00 01/18/18 13:59 Albuterol/ Ipratropium (Albuterol/ Ipratropium) 3 ml TIDRT HHN 01/13/18 19:00 01/18/18 18:59 01/16/18 14:18 Amlodipine Besylate (Norvasc) 10 mg DAILY ORAL 01/13/18 09:00 02/12/18 08:59 01/16/18 09:10 Atorvastatin Calcium (Lipitor) 40 mg BEDTIME ORAL 01/13/18 21:00 02/12/18 20:59 01/15/18 20:51 Benztropine Mesylate (Cogentin) 1 mg THREE TIMES A DAY ORAL 01/13/18 09:00 02/12/18 08:59 01/16/18 13:16 Divalproex Sodium (Depakote) 250 mg Q12HR ORAL 01/13/18 09:00 02/12/18 08:59 01/16/18 09:11 Risperidone (RisperDAL) 2.5 mg QHS ORAL 01/13/18 21:30 02/12/18 21:29 01/15/18 20:51 Sitagliptin Phosphate (Januvia) 25 mg ACBREAKFAST ORAL 01/15/18 06:30 02/14/18 06:29 01/16/18 06:38 Height (Feet): 5 Height (Inches): 8.00 Weight (Pounds): 210 General Appearance: no apparent distress, alert, non-toxic Head: normocephalic Eyes: bilateral anicteric ENT: normal voice Neck: full range of motion, no mass Respiratory: lungs clear - b.s. slightly coarse at R base. Cardiovascular: regular rate, rhythm Gastrointestinal: normal bowel sounds, non tender, soft, no mass, no organomegaly Musculoskeletal: no calf tenderness Edema: no edema noted Generalized Neurologic: no new focality Neurologic: Romberg - normal, gait/balance - baseline KRISTINA TREJO Jan 16, 2018 16:29
[2018-01-16] MEDS ORDERED: DEPAKOTE500 MG PO (16:46)
[2018-01-16] MEDS ORDERED: VITAMIN D400 INTLU ORAL (16:59)
--- NOTE | 2018-01-16 22:45 | Discharge Summary ---
DATE OF ADMISSION: 01/12/2018 DATE OF DISCHARGE: 01/16/2018 DISCHARGE DIAGNOSES: 1. Fever, pulmonary congestion, and upper respiratory tract symptoms suggestive of influenza like illness with negative influenza screening swab, resolving. 2. Volume depletion, multifactorial, resolving with intravenous hydration. 3. Acute kidney injury superimposed on chronic kidney disease, returning to baseline. 4. Dizziness, mild disorientation and headache subsequent to a fall with frontal trauma, suspect mild concussive syndrome. 5. Poorly-controlled diabetes mellitus, improved. 6. History of hypothyroidism with normal thyroid function tests, off of supplementation. 7. Hypertension, controlled. 8. History of anemia, possibly due to iron deficiency. 9. Occult blood positive stool x2, possibly associated irritation due to diarrhea versus more significant pathology. 10. History of gout. 11. Degenerative joint disease with mild chronic left hip or greater trochanteric symptomatology. 12. History of left medial thigh wound dissociated penetrating wound from fencing material incurred during psychotic episode requiring surgical debridement with residual scarring. 13. History of menopause in late 50s status post dilatation and curettage x2. 14. Bipolar disease/schizoaffective disorder/history of dissociative disorder with chronic psychosis and history of multiple psychiatric hospitalizations, last in 2014. HISTORY OF PRESENT ILLNESS: The patient is a 67-year-old woman who presented with complaints of congestion and upper respiratory tract infection like symptoms as well as diarrhea and also a history of a recent fall with head trauma and a fever to 100.3 degrees. Details of the history and physical exam are per the dictation of 01/13/2018. HOSPITAL COURSE: The patient's influenza screening swab returned negative and she did not have significant leukocytosis. It was thought that the patient's symptoms involving fever, upper respiratory tract infection, and cough probably most likely associated with viral influenza like illness. Given the duration of the symptoms, Tamiflu would not be of any benefit even if the patient had evidence of influenza. Therefore, the patient was treated symptomatically with bronchodilator therapy and Mucinex. The patient was volume depleted with a creatinine up to 2.6. Her baseline was in the high 1's. The patient was hydrated with intravenous fluids and over the course of the hospitalization returned to that baseline. Because of mild disorientation and a sense of dizziness as well as complaint of mild headache post fall, the patient was seen by Dr. Jah Shah in Neurology consultation. She underwent a CT scan of the head, which did not reveal evidence of any acute or space-occupying lesions and it was thought the etiology of her symptoms were primarily due to concussion. The patient was treated with mobilization and hydration and her symptoms appeared to resolve by the end of the hospitalization. The patient's diarrhea was uncertain etiology, but resolved soon after coming to the hospital. Stools were negative for C. difficile and were positive for occult blood x2. A third stool was ordered, but as of the time of this dictation has not been obtained. The patient was seen in gastroenterologic consultation by Dr. Madison Negron and Dr. Dwayne Siddiqui. Abdominal ultrasound failed to show specific abnormalities. The patient was watched expectantly and since there was no evidence of significant gastrointestinal blood loss at this point the patient is to be followed up as an outpatient with likely need for outpatient endoscopy and colonoscopy. The patient's diabetes mellitus revealed blood sugars in the 100s primarily, however, her glycohemoglobin was 9.1% suggesting an average glucose value of over 200 as an outpatient. It was recommended that the patient be initiated on regular diabetic medication. The patient and her conservator, her cousin, initially were worried about beginning therapy but after her laboratory results were explained they concurred with the trial of Januvia. Because of her chronic kidney disease, she will be maintained on only 25 mg daily and her diabetic status will be followed as an outpatient. Finally, the patient was initially somewhat unsteady on her feet and physical therapy was obtained while the patient was in the hospital. She improved considerably and at the time of discharge had a negative Romberg and appeared to have normal gait stability although at baseline she does have a somewhat broad-based gait. The patient will be referred to outpatient physical therapy to undergo course of strengthening and to improve her gait stability, this will be coordinated with resumption of her Reflections program where she participates for her outpatient psychiatric needs. The patient's medications at the time of discharge will include Depakote 250 mg b.i.d. and Depakote 1000 mg at bedtime, Risperdal 2.5 mg at bedtime, Januvia 25 mg every morning, amlodipine 10 mg every morning, atorvastatin 40 mg at bedtime, benztropine 1 mg t.i.d., docusate 100 mg daily. The referrals will be made to Dr. Negron within a month, Dr. Shah within a month, and physical therapy within a week as well as resumption of her reflections program. Azar Lopez M.D. DR: JEAN-CLAUDE JOB#: [id number] CC: OLGA
== END 2018-01-16 18:33 | disposition home or self-care (01) | DRG 153 ==
LOC: EMR 20:00 → EDBEDREQ 21:59 → EDBEDREQSVC 22:11 → 4W 22:30 → 2E 23:01
DX: J11.1 Influenza due to unidentified influenza virus with other respiratory manifestations (principal); N17.9 Acute kidney failure, unspecified; E11.22 Type 2 diabetes mellitus with diabetic chronic kidney disease; F07.81 Postconcussional syndrome; N39.0 Urinary tract infection, site not specified; N18.4 Chronic kidney disease, stage 4 (severe); F31.89 Other bipolar disorder; E86.0 Dehydration; F25.9 Schizoaffective disorder, unspecified; I12.9 Hypertensive chronic kidney disease with stage 1 through stage 4 chronic kidney disease, or unspecified chronic kidney disease; E66.9 Obesity, unspecified; G25.0 Essential tremor; E03.9 Hypothyroidism, unspecified; M15.9 Polyosteoarthritis, unspecified; Z87.891 Personal history of nicotine dependence; R19.7 Diarrhea, unspecified; R42 Dizziness and giddiness; S00.81XA Abrasion of other part of head, initial encounter; W19.XXXA Unspecified fall, initial encounter; G44.319 Acute post-traumatic headache, not intractable; Y92.003 Bedroom of unspecified non-institutional (private) residence as the place of occurrence of the external cause
CPT/HCPCS: 36415; 70450; 71045; 76700; 80048; 80053; 80164; 81003; 82270; 82306; 82550; 82728; 82962; 83036; 83540; 83550; 83605; 83880; 84439; 84443; 84484; 85025; 86705; 86709; 86710; 86803; 87040; 87045; 87324; 87340; 93005; 94640; 99285; J7620

== ENCOUNTER 2018-02-08 13:25 | Outpatient (RCR) | payer MEDICARE, MEDICAID ==
[~2018-02-08 13:25] MED LIST changes: +DEPAKOTE250 MG ORAL; +IBUPROFEN800 M1 PO; +JANUVIA25 MG ORAL; +RISPERDAL1 MG ORAL
== END 2018-02-25 | disposition home or self-care (01) ==
LOC: PTY 13:25
DX: R26.89 Other abnormalities of gait and mobility (principal)
CPT/HCPCS: 97110; 97161; G8978; G8979

== ENCOUNTER 2018-03-01 13:32 | Outpatient (RCR) | payer MEDICARE, MEDICAID | END 2018-03-27 | disposition home or self-care (01) | LOC: PTY 13:32 | DX: R26.9 Unspecified abnormalities of gait and mobility (principal) ==

== ENCOUNTER 2018-03-29 13:35 | Outpatient (RCR) | payer MEDICARE, MEDICAID | END 2018-04-27 | disposition home or self-care (01) | LOC: PTY 13:35 | DX: R26.9 Unspecified abnormalities of gait and mobility (principal) | CPT/HCPCS: 97110; G8979; G8980 ==

== ENCOUNTER 2018-05-29 11:19 | Emergency (ER) | payer MEDICAID, MEDICARE ==
[~2018-05-29] VITALS: Ht 172.7 cm; Wt 95.3 kg
--- NOTE | 2018-05-29 12:11 | Emergency Room Report ---
History of Present Illness General Chief Complaint: Female Urogenital Problems Source: Patient Present Illness HPI 67-year-old female patient presents ER complaining of urinary incontinence 1 day. Reports one episode of incontinence yesterday reports that she was attempting to get to the bathroom because she had the urge to urinate but was unable to get there in time. Reports has been able to control her urine since yesterday without difficulty. Reports that she is currently wearing a diaper. Denies history of incontinence. Reports that she had a concussion a few months ago when she was incontinent for a few days but has not had symptoms since that time or prior to that incident. Denies recent trauma or fall. Denies back pain. Denies chest pain, shortness of breath, abdominal pain. Denies bowel incontinence. Denies dysuria, hematuria, vaginal discharge. Reports hx of diabetes, reports controlled with diet, exercise and medication. Denies flank pain or vomiting. Allergies: Coded Allergies: No Known Allergies (Unverified , 07/08/13) Patient History Past Medical History: see triage record Last Menstrual Period: 2007 Reviewed Nursing Documentation: PMH: Agreed; PSxH: Agreed Nursing Documentation-PMH Hx Cardiac Problems: Yes - High cholesterol Hx Hypertension: Yes Hx Diabetes: Yes - DM II Hx Cancer: No Hx Gastrointestinal Problems: No History Of Psychiatric Problem: Yes - schizoaffective Hx Neurological Problems: No Review of Systems All Other Systems: negative except mentioned in HPI Physical Exam Vital Signs Date Time Temp Pulse Resp B/P (MAP) Pulse Ox O2 Delivery O2 Flow Rate FiO2 05/29/18 11:34 98.5 103 16 126/85 97 Room Air 98.4 Sp02 EP Interpretation: reviewed, normal General Appearance: well appearing, no apparent distress, alert, GCS 15, non- toxic Head: normocephalic, atraumatic Eyes: bilateral eye normal inspection, bilateral eye PERRL ENT: hearing grossly normal, normal pharynx, no angioedema, normal voice, uvula midline, moist mucus membranes Neck: full range of motion Respiratory: lungs clear, normal breath sounds, no rhonchi, no respiratory distress, no accessory muscle use, no wheezing, speaking full sentences Cardiovascular #1: regular rate, rhythm, no edema Gastrointestinal: non tender, soft, no mass, non-distended, no guarding, no rebound Genitourinary: no CVA tenderness Neurologic: alert, oriented x3, responsive, motor strength/tone normal, sensory intact Psychiatric: mood/affect normal Skin: no rash Medical Decision Making PA Attestation Dr. Adams is my supervising Physician whom patient management has been discussed with. Diagnostic Impression: Primary Impression: Urge incontinence of urine ER Course Pt. presents to the ED c/o urinary incontinence. Ddx considered but are not limited to stress incontinence, urge incontinence, UTI, acute kidney injury. Vital signs: are WNL, pt. is afebrile ER COURSE: physical exam benign, no abdominal TTP, patient denies dysuria, hematuria, low suspicion for UTI. patient history consistent with urge incontinence. Instructed patient to follow -up with primary care provider and request referral to urology for further testing. Advised patient on pelvic floor exercises. information provided on Kegel exercises. UA unremarkable, low suspicion for UTI patient asymptomatic, does not require antibiotic treatment at this time. Dr. Smith agrees with this assessment. following initial interview patient lighting designer came into the room to discuss patient's symptoms. Informed by lighting designer that patient was instructed to report to ER by Dr. Smith to have basic performed to check for kidney function. Elevator Service Mechanic states that patient has had episodes of incontinence in the past that usually precedes "worsening kidney failure symptoms". Had nurse contact Dr. Smith, was informed by nurse that Dr. Smith wanted to be contacted after basic labs were performed. Labs show no elevation WBCs, mild elevation in creatinine and BUN, blood glucose elevated, remainder of labs unremarkable. Discuss results with Dr. Smith. stated that patient's creatinine and BUNs are always mildly elevated, do not believe patient needs to be admitted at this time okay for outpatient follow-up. advised patient to drink plenty of fluids, take diabetes medications as instructed, eat diabetes friendly diet low in sugars. Patient is okay for discharge at this time, may follow-up with Dr. Smith in his office in 1-3 days. patient okay for discharge to caretakers. patient able ambulate independently without difficulty. ER precautions given, return to ER for new or worsening of symptoms including but not limited to chest pain, shortness breath, abdominal pain, hematuria, dysuria, intractable vomiting, intractable abdominal or flank pain. DISCHARGE: At this time pt is stable for d/c to home. Patient is resting comfortably, in no acute distress, nontoxic appearing, talking without difficulty. Patient to take medications as instructed Will provide with patient care instructions and any necessary prescriptions. Care plan and follow-up instructions provided. Patient instructed to follow-up with primary care provider in 3 - 5 days. Patient questions asked and answered. Patient reports understanding and agreement to treatment plan. ER precautions given. Patient instructed to return to ER immediately for any new or worsening of symptoms including but not limited to increasing SOB, persistent fever, chest pain, intractable vomiting. - Please note that this Emergency Department Report was dictated using [employer] of application development technology software, occasionally this can lead to erroneous entry secondary to interpretation by the dictation equipment. Labs Test 05/29/18 11:45 05/29/18 13:30 Urine Color Pale yellow Urine Appearance Clear Urine pH 5 (4.5-8.0) Urine Specific [place] 1.015 (1.005-1.035) Urine Protein 1+ (NEGATIVE) Urine Glucose (UA) Negative (NEGATIVE) Urine Ketones Negative (NEGATIVE) Urine Occult Blood Negative (NEGATIVE) Urine Nitrite Negative (NEGATIVE) Urine Bilirubin Negative (NEGATIVE) Urine Urobilinogen Normal MG/DL (0.0-1.0) Urine Leukocyte Esterase 1+ (NEGATIVE) Urine RBC 0-2 /HPF (0 - 2) Urine WBC 5-10 /HPF (0 - 2) Urine Squamous Epithelial Cells Moderate /LPF (NONE/OCC) Urine Bacteria Few /HPF (NONE) White Blood Count 9.0 K/UL (4.8-10.8) Red Blood Count 4.33 M/UL (4.20-5.40) Hemoglobin 13.1 G/DL (12.0-16.0) Hematocrit 40.4 % (37.0-47.0) Mean Corpuscular Volume 93 FL (80-99) Mean Corpuscular Hemoglobin 30.2 PG (27.0-31.0) Mean Corpuscular Hemoglobin Concent 32.4 G/DL (32.0-36.0) Red Cell Distribution Width 12.4 % (11.6-14.8) Platelet Count 182 K/UL (150-450) Mean Platelet Volume 9.8 FL (6.5-10.1) Neutrophils (%) (Auto) 62.9 % (45.0-75.0) Lymphocytes (%) (Auto) 24.9 % (20.0-45.0) Monocytes (%) (Auto) 10.3 % (1.0-10.0) Eosinophils (%) (Auto) 1.1 % (0.0-3.0) Basophils (%) (Auto) 0.9 % (0.0-2.0) Sodium Level 138 MMOL/L (136-145) Potassium Level 4.6 MMOL/L (3.5-5.1) Chloride Level 100 MMOL/L (98-107) Carbon Dioxide Level 30 MMOL/L (21-32) Anion Gap 8 mmol/L (5-15) Blood Urea Nitrogen 33 mg/dL (7-18) Creatinine 2.4 MG/DL (0.55-1.30) Estimat Glomerular Filtration Rate 24.6 mL/min (>60) Glucose Level 258 MG/DL (74-106) Calcium Level 9.3 MG/DL (8.5-10.1) Total Bilirubin 0.3 MG/DL (0.2-1.0) Aspartate Amino Transf (AST/SGOT) 20 U/L (15-37) Alanine Aminotransferase (ALT/SGPT) 18 U/L (12-78) Alkaline Phosphatase 70 U/L (46-116) Total Protein 8.6 G/DL (6.4-8.2) Albumin 3.5 G/DL (3.4-5.0) Globulin 5.1 g/dL Albumin/Globulin Ratio 0.7 (1.0-2.7) Last Vital Signs Date Time Temp Pulse Resp B/P (MAP) Pulse Ox O2 Delivery O2 Flow Rate FiO2 18 11:34 98.5 103 16 126/85 97 Room Air 98.4 Disposition: HOME, SELF-CARE Condition: Stable Patient Instructions: Urinary Incontinence Additional Instructions: Followup with primary care provider in 3 -5 days. Discuss referral to urology. Perform pelvic floor exercises. Patient questions asked and answered. ER precautions given, patient instructed to return to ER immediately for any new or worsening of symptoms. Jose Carlos Linton May 29, 2018 12:11
[2018-05-29 12:41] LABS: APPEARANCE,URINE CLEAR; BILIRUBIN, URINE NEGATIVE (NEGATIVE); COLOR,URINE PALE YELLOW; GLUCOSE, URINE (UA) NEGATIVE (NEGATIVE); KETONES,URINE NEGATIVE (NEGATIVE); LEUKOCYTE ESTERASE ,URINE 1+ (NEGATIVE); NITRITE,URINE NEGATIVE (NEGATIVE); PH,URINE 5 (4.5-8.0); PROTEIN,URINE 1+ (NEGATIVE); UROBILINOGEN,URINE NORMAL MG/DL (0.0-1.0)
[2018-05-29 12:44] VITALS: BP 126/85
[2018-05-29 13:56] LABS: BASOPHILS % (AUTO) 0.9 % (0.0-2.0); EOSINOPHILS % (AUTO) 1.1 % (0.0-3.0); HEMATOCRIT 40.4 % (37.0-47.0); HEMOGLOBIN 13.1 G/DL (12.0-16.0); LYMPHOCYTES % (AUTO) 24.9 % (20.0-45.0); MEAN CORPUSCULAR VOLUME 93 FL (80-99); MONOCYTES % (AUTO) 10.3 % (1.0-10.0); NEUTROPHILS % (AUTO) 62.9 % (45.0-75.0); PLATELET COUNT 182 K/UL (150-450); RED BLOOD COUNT 4.33 M/UL (4.20-5.40); RED CELL DISTRIBUTION WIDTH 12.4 % (11.6-14.8)
[2018-05-29 14:24] LABS: ANION GAP 8 mmol/L (5-15); BLOOD UREA NITROGEN 33 mg/dL (7-18); CALCIUM 9.3 MG/DL (8.5-10.1); CARBON DIOXIDE 30 MMOL/L (21-32); CHLORIDE 100 MMOL/L (98-107); CREATININE 2.4 MG/DL (0.55-1.30); POTASSIUM 4.6 MMOL/L (3.5-5.1); SODIUM 138 MMOL/L (136-145)
[2018-05-29 14:28] LABS: ALANINE AMINOTRANSFERASE 18 U/L (12-78); ALBUMIN 3.5 G/DL (3.4-5.0); ALBUMIN/GLOBULIN RATIO 0.7 (1.0-2.7); ALKALINE PHOSPHATASE 70 U/L (46-116); ASPARTATE AMINO TRANSFERASE 20 U/L (15-37); BILIRUBIN,TOTAL 0.3 MG/DL (0.2-1.0)
[2018-05-29 15:35] VITALS: BP 126/85
== END 2018-05-29 15:37 | disposition home or self-care (01) ==
LOC: EMR 12:30
DX: N39.41 Urge incontinence (principal); I10 Essential (primary) hypertension; E11.9 Type 2 diabetes mellitus without complications; F25.9 Schizoaffective disorder, unspecified
CPT/HCPCS: 36415; 80053; 81003; 85025; 99283